=== PATIENT | male | born 1975 | race Caucasian/White ===

== ENCOUNTER 2020-08-01 18:30 | Emergency (ER) | payer OTHER, SELFPAY ==
[2020-08-01 18:47] VITALS: BP 129/83; PULSE 61; RESP 18; TEMP 36.6; O2SAT 97; BMI 26.6
[2020-08-01 19:38] LABS: MANUAL DIFF FLAG NO
[2020-08-01 19:39] LABS: Basophils Percent Auto 0.4 % (0-2); Eosinophils Absolute Auto 0.2 X10*3/uL (0.0-0.4); Eosinophils Percent Auto 1.8 % (0-4); Hematocrit 35.4 % (42-52); Hemoglobin 11.3 g/dl (14.0-18.0); Imm Gran Abs Auto 0.02 X10*3/uL (0.00-0.03); Imm Gran Pct Auto 0.2 % (0.0-0.4); Lymphocytes Absolute Auto 1.2 X10*3/uL (1.2-4.9); Lymphocytes Percent Auto 14.8 % (20-40); Mean Corpuscular HGB Conc 31.9 g/dl (31.0-36.0); Mean Corpuscular Hemoglobin 28.4 pg (27.0-33.0); Mean Corpuscular Volume 88.9 fL (80-98); Mean Platelet Volume 10.6 fL (9.4-12.4); Monocytes Absolute Auto 0.7 X10*3/uL (0.1-1.2); Monocytes Percent Auto 8.4 % (2-11); Neutrophils Absolute Auto 6.2 X10*3/uL (2.0-8.3); Neutrophils Percent Auto 74.4 % (45-73); Platelet Count 218 X10*3/uL (160-400); Red Blood Count 3.98 X10*6/uL (4.60-5.80); Red Cell Distribution Width 13.3 % (11.0-16.0); White Blood Count 8.4 X10*3/uL (4.8-10.8)
[2020-08-01 19:49] LABS: INTERNATIONAL NORM RATIO 2.7 (0.9-1.1); Prothrombin Time 32.2 SEC (10.8-13.0)
[2020-08-01] MEDS: Lidocaine 4 % Cream KIT 1 APPL TOPICAL (19:50)
[2020-08-01 19:51] LABS: Partial Thromboplastin Time 46.7 SEC (24.1-38.0)
[2020-08-01] MEDS: cephALEXin 500 MG CAPSULE PO (19:51)
[2020-08-01] MEDS: Lidocaine HCl 1 % MPF 5 ML VIAL 10 ML SUBCUT (19:52)
[2020-08-01 20:07] LABS: Lactic Acid 0.6 mmol/L (0.5-2.0)
[2020-08-01 20:12] LABS: Alanine Aminotransferase 12 U/L (0-40); Albumin Level 3.6 g/dL (3.5-5.0); Alkaline Phosphatase 61 U/L (39-117); Anion Gap 15 (12-20); Aspartate Amino Transferase 24 U/L (5-37); Bilirubin Total 0.4 mg/dL (0.0-1.0); Blood Urea Nitrogen 16 mg/dL (9-16); Calcium 8.4 mg/dL (8.4-10.2); Carbon Dioxide 20 mmol/L (22-29); Chloride 104 mmol/L (96-108); Creatinine Clr Calc Pharmacy 81.1; Estimated Glomerular Filt Rate > 60; Glucose Random 80 mg/dL (60-115); Potassium 4.3 mmol/l (3.3-5.1); Sodium 135 mmol/L (135-145); Total Protein 6.7 g/dL (6.5-8.0)
--- NOTE | 2020-08-01 20:16 | US_ITS ---
EXAMINATION: US VENOUS ULTRASOUND WITH DOPPLER LOWER EXTREMITY, RIGHT CLINICAL INFORMATION: 44-year-old male patient with leg swelling and pain. COMPARISON: Triplex scan of the left lower extremity on 05/17/2020. (Negative). TECHNIQUE: Ultrasound of the deep veins is performed from the hip to the calf with compression sonography and color and pulse Doppler assessment. Spectral analysis with color-flow imaging is performed. FINDINGS: There is normal venous compression and respiratory variation and augmented flow. The visualized common femoral vein, superficial femoral vein, profunda femoral vein, popliteal vein, and the trifurcation region shows no evidence of deep venous thrombosis. There is no significant popliteal fossa cyst. US/US venous duplex LE RT IMPRESSION: No DVT demonstrated in the right lower extremity.
[2020-08-01] MEDS: oxyCODONE HCl Immed Release 5 MG TABLET PO (20:23)
--- NOTE | 2020-08-01 20:28 | PC.NURSE ---
[facility] PATIENTS LABS AND 1 SET OF CULTURES TOGETHER. PATIENT WAS A DIFFICULT STICK. PATIENT TOLD THIS TECH HE DID NOT WANT TO BE STUCK ANYMORE. PATIENT WAS GIVEN ANTIBIOTICS AFTER THE LABS AND 1 SET OF CULTURES WERE DONE. BLOOD CULTURE ORDER WAS NOT PUT IN TIME OF LABS DRAWN. SECOND SET OF CULTURES WERE NOT DRAWN.
--- NOTE | 2020-08-01 20:46 | PC.NURSE ---
ONE BLOOD CULTURE WAS DRAWN PRIOR TO ANTIBIOTICS. TECH WAS WAITING FOR MD ORDER. MD JUST ORDERED BLOOD CULTURES. SECOND SET IS BEING DRAWN NOW. MOE JULIEN.
--- NOTE | 2020-08-01 21:09 | ED.SKABFB ---
HPI - Skin/Abscess/Foreign Bdy General Chief complaint: Wound/Laceration Stated complaint: abscess Time Seen by Provider: 08/01/20 19:18 Source: patient Mode of arrival: ambulatory Limitations: no limitations History of Present Illness HPI narrative: 44-year-old male with history of valve replacement on Coumadin also history of IV drug use presenting with complaint of pain to the posterior right calf area were he presumably attempted inject heroin and miss now site has formed abscess. He denies any fever or chills no chest pain or shortness of breath. MD complaint: abscess/boil Onset (ago): day(s) Tetanus up to date: yes Location: RLE Severity: moderate Quality: aching Pain Consistency: constant Relieving factors: immobilization Exacerbating factors: palpation Context: IVDA Associated symptoms: denies other symptoms Treatments prior to arrival: none Related Data Previous Rx's Medication Instructions Recorded cephalexin [Keflex] 500 mg PO Q8H 7 Days #21 cap 08/01/20 doxycycline monohydrate 100 mg PO BID 10 Days #20 cap 08/01/20 Allergies Allergy/AdvReac Type Severity Reaction Status Date / Time No Known Allergies Allergy Unverified 06/08/20 15:07 [No Known Allergies*] [facility] Past Medical History Attestation statement: The following information was validated with the patient. Source: unable to obtain Medical History IV drug user Surgical History (Updated 08/01/20 @ 21:15 by Beau Fletcher NP) Heart valve replaced Social History Social History Advance Directives: No Advance Directives Information Provided: Yes Physical Exam Vital Signs: Vital Signs: Last Vital Signs Temp 98 F 08/01/20 18:47 Pulse 61 08/01/20 18:47 Resp 18 08/01/20 18:47 BP 129/83 08/01/20 18:47 Pulse Ox 97 08/01/20 18:47 Body Mass Index 26.6 Reviewed Const: General: cooperative and healthy appearing; No acute distress or intoxicated appearing Nutritional Appearance: average body habitus Orientation/consciousness: patient oriented x3 HENMT: Head: Yes normal to inspection Ears: hearing grossly normal bilaterally Eyes: General: appearance normal, both eyes and all related structures Visual Rubin: normal visual rubin by confrontation Neck: Neck: Yes normal visual inspection and No tender Thyroid: Thyroid normal Chest: Chest palpation & inspection: normal inspection of the chest Resp: Effort & Inspection: normal respiratory effort Cardio: Jugular venous distension: no JVD GI: Inspection: Yes normal to inspection Percussion: Yes normal to percussion Auscultation: normal bowel sounds : General: Yes no CVA tenderness Back/Spine/Pelvis: Back: no CVA tenderness Skin: General skin exam: no rashes or lesions noted Neuro: General: patient oriented x3 Extrem: Other: General: Yes normal to inspection Procedures Abscess I/D Site: lower extremity (Right calf) Side (if applicable): right Sedation/analgesia: other (5 mg oxycodone p.o., topical LMX, local) Local Anesthetic: lidocaine 1% Amount of anesthesia used (mL): 10 Technique: incised with blade (11. ) Amount of fluid expressed (mL): 20 Irrigation: Yes Packing used?: iodoform Complications: other (Tolerated well) MDM - Skin/Abscess/Foreign Bdy MDM Narrative Medical decision making narrative: Though labs are stable given his significant area of abscess and cellulitis recommended for admission for IV antibiotics he declined this. Ultrasound did not show any evidence of DVT. Given dose of IV antibiotics here lab work was done including lactic acid and blood cultures. Patient will sign against medical advice. Differential Diagnosis Differential diagnosis: Likely abscess of skin or subcutaneous tissue and cellulitis; Unlikely viral exanthem, dermatophytosis, urticaria, herpes zoster, allergic reaction to drug, eczema, insect bites, impetigo and contact dermatitis Lab Data Result diagrams: 08/01/20 19:32 08/01/20 19:32 Labs: Lab Results 08/01/20 08/01/20 08/01/20 Range/Units 19:32 19:32 19:32 WBC 8.4 (4.8-10.8) X10*3/uL RBC 3.98 L (4.60-5.80) X10*6/uL Hgb 11.3 L (14.0-18.0) g/dl Hct 35.4 L (42-52) % MCV 88.9 (80-98) fL MCH 28.4 (27.0-33.0) pg MCHC 31.9 (31.0-36.0) g/dl RDW 13.3 (11.0-16.0) % Plt Count 218 (160-400) X10*3/uL MPV 10.6 (9.4-12.4) fL Immature Gran % (Auto) 0.2 (0.0-0.4) % Neut % (Auto) 74.4 H (45-73) % Lymph % (Auto) 14.8 L (20-40) % [place] % (Auto) 8.4 (2-11) % Eos % (Auto) 1.8 (0-4) % Baso % (Auto) 0.4 (0-2) % Lymph # (Auto) 1.2 (1.2-4.9) X10*3/uL [place] # (Auto) 0.7 (0.1-1.2) X10*3/uL Eos # (Auto) 0.2 (0.0-0.4) X10*3/uL Baso # (Auto) 0.0 (0.0-0.2) X10*3/uL Abs Immat Gran (auto) 0.02 (0.00-0.03) X10*3/uL Absolute Neuts (auto) 6.2 (2.0-8.3) X10*3/uL Absolute Nucleated RBC 0.000 (0.0-0.012) X10*3/uL Nucleated RBC % (auto) 0.0 (0.0-0.2) /100WBC PT 32.2 H (10.8-13.0) SEC INR 2.7 H (0.9-1.1) APTT 46.7 H (24.1-38.0) SEC Sodium 135 (135-145) mmol/L Potassium 4.3 (3.3-5.1) mmol/l Chloride 104 (96-108) mmol/L Carbon Dioxide 20 L (22-29) mmol/L Anion Gap 15 (12-20) BUN 16 (9-16) mg/dL Creatinine 1.10 (0.5-1.4) mg/dL Estim Creat Clear Calc 81.1 Estimated GFR > 60 Random Glucose 80 (60-115) mg/dL Lactic Acid (0.5-2.0) mmol/L Calcium 8.4 (8.4-10.2) mg/dL Total Bilirubin 0.4 (0.0-1.0) mg/dL AST 24 (5-37) U/L ALT 12 (0-40) U/L Alkaline Phosphatase 61 (39-117) U/L Total Protein 6.7 (6.5-8.0) g/dL Albumin 3.6 (3.5-5.0) g/dL 08/01/20 Range/Units 19:32 WBC (4.8-10.8) X10*3/uL RBC (4.60-5.80) X10*6/uL Hgb (14.0-18.0) g/dl Hct (42-52) % MCV (80-98) fL MCH (27.0-33.0) pg MCHC (31.0-36.0) g/dl RDW (11.0-16.0) % Plt Count (160-400) X10*3/uL MPV (9.4-12.4) fL Immature Gran % (Auto) (0.0-0.4) % Neut % (Auto) (45-73) % Lymph % (Auto) (20-40) % [place] % (Auto) (2-11) % Eos % (Auto) (0-4) % Baso % (Auto) (0-2) % Lymph # (Auto) (1.2-4.9) X10*3/uL [place] # (Auto) (0.1-1.2) X10*3/uL Eos # (Auto) (0.0-0.4) X10*3/uL Baso # (Auto) (0.0-0.2) X10*3/uL Abs Immat Gran (auto) (0.00-0.03) X10*3/uL Absolute Neuts (auto) (2.0-8.3) X10*3/uL Absolute Nucleated RBC (0.0-0.012) X10*3/uL Nucleated RBC % (auto) (0.0-0.2) /100WBC PT (10.8-13.0) SEC INR (0.9-1.1) APTT (24.1-38.0) SEC Sodium (135-145) mmol/L Potassium (3.3-5.1) mmol/l Chloride (96-108) mmol/L Carbon Dioxide (22-29) mmol/L Anion Gap (12-20) BUN (9-16) mg/dL Creatinine (0.5-1.4) mg/dL Estim Creat Clear Calc Estimated GFR Random Glucose (60-115) mg/dL Lactic Acid 0.6 (0.5-2.0) mmol/L Calcium (8.4-10.2) mg/dL Total Bilirubin (0.0-1.0) mg/dL AST (5-37) U/L ALT (0-40) U/L Alkaline Phosphatase (39-117) U/L Total Protein (6.5-8.0) g/dL Albumin (3.5-5.0) g/dL Discharge Plan Discharge Clinical Impression: Abscess Patient Disposition: Left Against Medical Advice Instructions: Abscess (ED), Abscess Incision and Drainage (DC), Opioid Use Disorder (ED) Additional Instructions: Please stop using illicit drugs is cause serious harm to her health including but not limited to Your evaluated for the abscess on the posterior aspect of your right calf you were evaluated with blood work and ultrasound and I recommended that he stay in the hospital for IV antibiotic. You have declined admission here and are signing out against medical advice with understanding that your condition can worsen where this infection can become blood borne cause major organ damage and lead to . Return in 2 days for abscess recheck and packing removal Return sooner if any concerns or worsening symptoms Take antibiotic as prescribed Thank you Prescriptions: New doxycycline monohydrate 100 mg capsule 100 mg PO BID 10 Days Qty: 20 RF: 0 cephalexin [Keflex] 500 mg capsule 500 mg PO Q8H 7 Days Qty: 21 RF: 0 Referrals: Rashel Chavez MD [Primary Care Provider] - 2 days Beau Fletcher NP [Emergency Midlevel Provider] - 2 days (For wound check/packing removal)
--- NOTE | 2020-08-01 21:30 | PC.NURSE ---
PT WAS NOT IN ROOM FOR DISCHARGE PAPERS. PROVIDER DRAINED AND PACKED ABSCESS ON RIGHT CALF. 2 ATTEMPTS TO CALL PATIENT BACK. MESSAGE LEFT WITH TO HAVE PATIENT CALL ED. NO OTHER INFORMATION WAS GIVEN TO .
== END 2020-08-01 21:42 | disposition left against medical advice (07) ==
PROVIDERS: Nurse Practitioner Primary Care; Emergency Provider Emergency Medicine; PCP Internal Medicine
DX: L02.415 Cutaneous abscess of right lower limb (principal); R60.0 Localized edema; M79.604 Pain in right leg; F11.10 Opioid abuse, uncomplicated; Z71.51 Drug abuse counseling and surveillance of drug abuser
CPT/HCPCS: 10060; 36415; 80053; 83605; 85025; 85610; 85730; 87040; 93971; 99284

== ENCOUNTER 2020-08-02 03:49 | Inpatient (IN) | payer OTHER, SELFPAY ==
[2020-08-02] VITALS (9 sets, daily range): BP systolic 95–132; BP diastolic 49–79; PULSE 51–66; RESP 12–18; TEMP 36.2–36.6; O2SAT 96–100; BMI 26.6
--- NOTE | 2020-08-02 | ECG_ITS ---
Test Reason : CHECK QTC Blood Pressure : / mmHG Vent. Rate : 053 BPM Atrial Rate : 053 BPM P-R Int : 150 ms QRS Dur : 110 ms QT Int : 516 ms P-R-T Axes : 053 053 079 degrees QTc Int : 484 ms Sinus bradycardia RSR' or QR pattern in V1 suggests right ventricular conduction delay Minimal voltage criteria for LVH, may be normal variant Prolonged QT Nonspecific T wave abnormality Abnormal ECG When compared with ECG of 17-MAY-2020 18:11, Premature ventricular complexes are no longer Present Vent. rate has decreased BY 30 BPM Nonspecific T wave abnormality has replaced inverted T waves in Anterior leads Referred By: Loulou Jacobson Electronically Signed By:VANESSA ROWE MD
--- NOTE | 2020-08-02 04:18 | ED_ITS ---
HPI - Extremity Problem General Chief complaint: Skin/Abscess/Foreign Body Stated complaint: ABSCESS ON LEG Time Seen by Provider: 08/02/20 04:08 Source: patient Mode of arrival: ambulatory Limitations: no limitations History of Present Illness HPI Narrative: patient comes to emergency room complaining of worsening pain, subjective fever and chills. Patient has an abscess in his right calf. Patient was seen earlier today, the abscess was drained, patient states he was advised to stay for admission, patient refused. Patient states earlier today he received IV antibiotics in the left. Patient states that he can no longer stand the pain. Related Data Home Medications Medication Instructions Recorded Confirmed methadone [Methadose] 40 mg PO DAILY 08/02/20 08/02/20 omeprazole 20 mg PO DAILY 08/02/20 08/02/20 warfarin 10 mg PO DAILY 08/02/20 08/02/20 Allergies Allergy/AdvReac Type Severity Reaction Status Date / Time No Known Allergies Allergy Verified 08/02/20 04:02 [No Known Allergies*] Review of Systems Review of Systems: Constitutional : No Weight loss, No Fever, No Chills, No Night Sweats, No Fatigue, No Malaise ENT/Mouth : No Hearing loss, No Ear Pain, No Nasal Congestion, No Sinus Pain, No Hoarseness, No sore throat, No Rhinorrhea, No Swallowing Difficulty Eyes: No Eye Pain, No Swelling, No Redness, No Foreign Body, No Discharge, No Vision Changes Cardiovascular : No Chest Pain, No SOB, No Dyspnea on Exertion, No Orthopnea, No Edema, No Palpitations Respiratory : No Cough, No Sputum, No Wheezing, No Smoke Exposure, No Dyspnea Gastrointestinal : No Nausea, No Vomiting, No Diarrhea, No Constipation, No abdominal Pain, No Hematochezia, No Melena Genitourinary : no irregular bleeding, No Dysuria, No Urinary Frequency, No Hematuria, No Urinary Incontinence, No Urgency, No Flank Pain, No Urinary Flow Changes, No Hesitancy Musculoskeletal : No joint pain, No Myalgias, No Joint Swelling Skin : Erythematous, red, painful to touch skin in the right calf. Neuro : No Weakness, No Numbness, No Paresthesias, No Loss of Consciousness, No Dizziness, No Headache Psych : No Anxiety/Panic, No Depression, No SI/HI/AH/VH, No Social Issues, Heme/Lymph: No Bruising, No Bleeding,No Lymphadenopathy Endocrine : No Polyuria, No Polydipsia, No Temperature Intolerance [facility] Past Medical History Medical History Endocarditis IV drug user Surgical History (Updated 08/02/20 @ 06:35 by Twin Lamas MD) Heart valve replaced Mitral valve replaced Social History Social History Alcohol intake: never Smoking Status: Current every day smoker Use of substances other than those prescribed or required for medical reasons: Yes Substance Use Type: Crack/Cocaine and Heroin Substance Use Frequency: Daily Last Used Substance: Days (ago) Any prior treatment program specific to substance use: Yes Advance Directives: No Physical Exam Vital Signs: Vital Signs: Last Vital Signs Temp 98 F 08/02/20 06:00 Pulse 66 08/02/20 06:00 Resp 12 08/02/20 06:00 BP 102/54 L 08/02/20 06:00 Pulse Ox 98 08/02/20 06:00 Body Mass Index 26.6 Appearance: Alert. Oriented X3. No acute distress. Eyes: Pupils equal, round and reactive to light. ENT: Pharynx normal. Neck: Normal inspection. Neck supple. No lymph nodes noted. No crepitus CVS: Normal heart rate and rhythm. Pulses normal. Normal S1 and S2 Respiratory: No respiratory distress. Breath sounds normal. No Wheezing. No rales Abdomen: Soft and nontender. No rigidity. No distention. good BS x4 Skin: Patient has erythema, tender to palpation, draining a scant amount of blood, packing in place Extremities: No lower extremity edema. No lower extremity edema. No Lacerations. No Rash Neuro: Oriented X 3. No motor deficit. No sensory deficit. Moving all extermities. No slurred speech. Course Course Course Narrative: pt b eing admitted MDM - Extremity (Nontraumatic) Lab Data Result diagrams: 08/02/20 04:48 08/02/20 04:48 Labs: Lab Results 08/02/20 08/02/20 08/02/20 Range/Units 04:48 04:48 04:48 WBC 7.2 (4.8-10.8) X10*3/uL RBC 4.32 L (4.60-5.80) X10*6/uL Hgb 12.4 L (14.0-18.0) g/dl Hct 38.2 L (42-52) % MCV 88.4 (80-98) fL MCH 28.7 (27.0-33.0) pg MCHC 32.5 (31.0-36.0) g/dl RDW 13.3 (11.0-16.0) % Plt Count 243 (160-400) X10*3/uL MPV 11.0 (9.4-12.4) fL Immature Gran % (Auto) 0.3 (0.0-0.4) % Neut % (Auto) 72.7 (45-73) % Lymph % (Auto) 14.5 L (20-40) % [place] % (Auto) 9.5 (2-11) % Eos % (Auto) 2.7 (0-4) % Baso % (Auto) 0.3 (0-2) % Lymph # (Auto) 1.0 L (1.2-4.9) X10*3/uL [place] # (Auto) 0.7 (0.1-1.2) X10*3/uL Eos # (Auto) 0.2 (0.0-0.4) X10*3/uL Baso # (Auto) 0.0 (0.0-0.2) X10*3/uL Abs Immat Gran (auto) 0.02 (0.00-0.03) X10*3/uL Absolute Neuts (auto) 5.2 (2.0-8.3) X10*3/uL Absolute Nucleated RBC 0.000 (0.0-0.012) X10*3/uL Nucleated RBC % (auto) 0.0 (0.0-0.2) /100WBC PT (10.8-13.0) SEC INR (0.9-1.1) Sodium 136 (135-145) mmol/L Potassium 4.1 (3.3-5.1) mmol/l Chloride 102 (96-108) mmol/L Carbon Dioxide 26 (22-29) mmol/L Anion Gap 12 (12-20) BUN 15 (9-16) mg/dL Creatinine 1.23 (0.5-1.4) mg/dL Estim Creat Clear Calc 71.8 Estimated GFR > 60 Random Glucose 90 (60-115) mg/dL Lactic Acid 0.6 (0.5-2.0) mmol/L Calcium 9.1 D (8.4-10.2) mg/dL Total Bilirubin 0.2 (0.0-1.0) mg/dL Direct Bilirubin 0.2 (0.0-0.5) mg/dL AST 21 (5-37) U/L ALT 15 (0-40) U/L Alkaline Phosphatase 71 (39-117) U/L Total Protein 7.3 (6.5-8.0) g/dL Albumin 4.0 (3.5-5.0) g/dL 08/02/20 Range/Units 04:51 WBC (4.8-10.8) X10*3/uL RBC (4.60-5.80) X10*6/uL Hgb (14.0-18.0) g/dl Hct (42-52) % MCV (80-98) fL MCH (27.0-33.0) pg MCHC (31.0-36.0) g/dl RDW (11.0-16.0) % Plt Count (160-400) X10*3/uL MPV (9.4-12.4) fL Immature Gran % (Auto) (0.0-0.4) % Neut % (Auto) (45-73) % Lymph % (Auto) (20-40) % [place] % (Auto) (2-11) % Eos % (Auto) (0-4) % Baso % (Auto) (0-2) % Lymph # (Auto) (1.2-4.9) X10*3/uL [place] # (Auto) (0.1-1.2) X10*3/uL Eos # (Auto) (0.0-0.4) X10*3/uL Baso # (Auto) (0.0-0.2) X10*3/uL Abs Immat Gran (auto) (0.00-0.03) X10*3/uL Absolute Neuts (auto) (2.0-8.3) X10*3/uL Absolute Nucleated RBC (0.0-0.012) X10*3/uL Nucleated RBC % (auto) (0.0-0.2) /100WBC PT 40.4 H D (10.8-13.0) SEC INR 3.4 H (0.9-1.1) Sodium (135-145) mmol/L Potassium (3.3-5.1) mmol/l Chloride (96-108) mmol/L Carbon Dioxide (22-29) mmol/L Anion Gap (12-20) BUN (9-16) mg/dL Creatinine (0.5-1.4) mg/dL Estim Creat Clear Calc Estimated GFR Random Glucose (60-115) mg/dL Lactic Acid (0.5-2.0) mmol/L Calcium (8.4-10.2) mg/dL Total Bilirubin (0.0-1.0) mg/dL Direct Bilirubin (0.0-0.5) mg/dL AST (5-37) U/L ALT (0-40) U/L Alkaline Phosphatase (39-117) U/L Total Protein (6.5-8.0) g/dL Albumin (3.5-5.0) g/dL Discharge Plan Discharge Clinical Impression: IV drug user, Cellulitis Patient Disposition: Admitted As Inpatient Prescriptions: No Action warfarin 5 mg tablet 10 mg PO DAILY RF: 0 omeprazole 20 mg capsule,delayed release(DR/EC) 20 mg PO DAILY RF: 0 methadone [Methadose] 10 mg/mL Concentrate 40 mg PO DAILY RF: 0
[2020-08-02 05:03] LABS: MANUAL DIFF FLAG NO
[2020-08-02 05:08] LABS: Basophils Percent Auto 0.3 % (0-2); Eosinophils Absolute Auto 0.2 X10*3/uL (0.0-0.4); Eosinophils Percent Auto 2.7 % (0-4); Hematocrit 38.2 % (42-52); Hemoglobin 12.4 g/dl (14.0-18.0); Imm Gran Abs Auto 0.02 X10*3/uL (0.00-0.03); Imm Gran Pct Auto 0.3 % (0.0-0.4); Lymphocytes Percent Auto 14.5 % (20-40); Mean Corpuscular HGB Conc 32.5 g/dl (31.0-36.0); Mean Corpuscular Hemoglobin 28.7 pg (27.0-33.0); Mean Corpuscular Volume 88.4 fL (80-98); Monocytes Absolute Auto 0.7 X10*3/uL (0.1-1.2); Monocytes Percent Auto 9.5 % (2-11); Neutrophils Absolute Auto 5.2 X10*3/uL (2.0-8.3); Neutrophils Percent Auto 72.7 % (45-73); Platelet Count 243 X10*3/uL (160-400); Red Blood Count 4.32 X10*6/uL (4.60-5.80); Red Cell Distribution Width 13.3 % (11.0-16.0); White Blood Count 7.2 X10*3/uL (4.8-10.8)
[2020-08-02 05:12] LABS: INTERNATIONAL NORM RATIO 3.4 (0.9-1.1); Prothrombin Time 40.4 SEC (10.8-13.0)
[2020-08-02] MEDS: 0.9 % Sodium Chloride 1,000 ML 999 ML IVCONT ×2 (05:23)
[2020-08-02] MEDS: Morphine Sulfate 4 MG/ML CARTRIDGE IVPUSH ×3 (05:23→21:57)
[2020-08-02] MEDS: Ketorolac Tromethamine 30 MG/ML VIAL IVPUSH (05:23)
[2020-08-02 05:41] LABS: Lactic Acid 0.6 mmol/L (0.5-2.0)
[2020-08-02 05:45] LABS: Alanine Aminotransferase 15 U/L (0-40); Alkaline Phosphatase 71 U/L (39-117); Anion Gap 12 (12-20); Aspartate Amino Transferase 21 U/L (5-37); Bilirubin Direct 0.2 mg/dL (0.0-0.5); Bilirubin Total 0.2 mg/dL (0.0-1.0); Blood Urea Nitrogen 15 mg/dL (9-16); Calcium 9.1 mg/dL (8.4-10.2); Carbon Dioxide 26 mmol/L (22-29); Chloride 102 mmol/L (96-108); Creatinine Clr Calc Pharmacy 71.8; Estimated Glomerular Filt Rate > 60; Glucose Random 90 mg/dL (60-115); Potassium 4.1 mmol/l (3.3-5.1); Sodium 136 mmol/L (135-145); Total Protein 7.3 g/dL (6.5-8.0)
--- NOTE | 2020-08-02 06:17 | PC.NURSE ---
Pt takes metahdone daily. Methdone dose was verified, and faxed to pharmacy. Please see paper chart for details.
--- NOTE | 2020-08-02 06:29 | P.HPHOSP_ITS ---
History of Present Illness Date of Service: 08/02/20 Chief Complaint: skin abscess this is a 45-year-old male with past medical history of IV drug use as well as 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 Patient presented in the hospital earlier in the day, the abscess was drained, patient was supposed to be admitted but he refused admission at that time. He returns this morning stating that he continued not feeling well, nauseous, feeling weak and therefore decided to return to the hospital. When I saw him,the patient is withdrawing from methadone, feeling nauseous, pacing back and forth, otherwise reports that he noticed the abscess about 4 days ago, started small like a pimple and grew in size. He denies having any fever. He injects in that site. He has no abdominal pain, diarrhea constipation, no urinary symptoms and no lower extremity edema. On arrival to the ED hemodynamically stable with no significant abnormal vitals labs are significant for no leukocytosis, PT of 40, INR 3.4, otherwise unre markable. past medical history: IV drug use, endocarditis status post mitral valve replacement on Coumadin past surgical history: Mitral valve replacement due to endocarditis family history: Denies Social history: comes from home, smokes about 1 pack per day, denies alcohol use, uses heroin Review of Systems Review of Systems: Yes all other systems are reviewed and are negative [facility] Medical History Endocarditis IV drug user Surgical History (Updated 08/02/20 @ 06:35 by Twin Lamas MD) Heart valve replaced Mitral valve replaced Social History Alcohol intake: never Smoking Status: Current every day smoker Use of substances other than those prescribed or required for medical reasons: Yes Substance Use Type: Crack/Cocaine and Heroin Substance Use Frequency: Daily Last Used Substance: Days (ago) Any prior treatment program specific to substance use: Yes Advance Directives: No Meds Allergies Allergy/AdvReac Type Severity Reaction Status Date / Time No Known Allergies Allergy Verified 08/02/20 04:02 [No Known Allergies*] Home Medications Medication Instructions Recorded Confirmed Type methadone [Methadose] 40 mg PO DAILY 08/02/20 08/02/20 History omeprazole 20 mg PO DAILY 08/02/20 08/02/20 History warfarin 10 mg PO DAILY 08/02/20 08/02/20 History Physical Exam Vital Signs and Narrative: Vital Signs: Last Vital Signs Temp 97.7 F 08/02/20 04:18 Pulse 64 08/02/20 05:22 Resp 12 08/02/20 05:22 BP 106/49 L 08/02/20 05:22 Pulse Ox 98 08/02/20 05:22 Body Mass Index 26.6 Const: General: cooperative and no acute distress Orientation/consciousness: patient oriented x3 Eyes: General: appearance normal, both eyes and all related structures Pupils: Equal, round and reactive pupils present Resp: Effort & Inspection: normal respiratory effort and able to speak in complete sentences Auscultation: clear to auscultation bilaterally Cardio: Rate: regular rate Rhythm: regular rhythm GI: Palpation (GI): Soft to palpation Auscultation: normal bowel sounds Skin: General skin exam: no rashes or lesions noted Neuro: General: patient oriented x3 Cranial nerves: Yes Equal, round and reactive pupils present Cognition (Neuro): normal cognition Extrem: Other: a large open wound on the posterior aspect of right leg wound, erythema, tenderness, wound General: Yes no pedal edema Results Labs CBC and Chem 7: 08/02/20 04:48 08/02/20 04:48 Labs: Laboratory Results - last 24 hr 08/02/20 08/02/20 08/02/20 04:48 04:48 04:48 MCV 88.4 MCH 28.7 MCHC 32.5 RDW 13.3 Plt Count 243 MPV 11.0 Immature Gran % (Auto) 0.3 Neut % (Auto) 72.7 Lymph % (Auto) 14.5 L [place] % (Auto) 9.5 Eos % (Auto) 2.7 Baso % (Auto) 0.3 Lymph # (Auto) 1.0 L [place] # (Auto) 0.7 Eos # (Auto) 0.2 Baso # (Auto) 0.0 Abs Immat Gran (auto) 0.02 Absolute Neuts (auto) 5.2 Absolute Nucleated RBC 0.000 Nucleated RBC % (auto) 0.0 PT INR Anion Gap 12 Estim Creat Clear Calc 71.8 Estimated GFR > 60 Random Glucose 90 Lactic Acid 0.6 Calcium 9.1 D Total Bilirubin 0.2 Direct Bilirubin 0.2 AST 21 ALT 15 Alkaline Phosphatase 71 Total Protein 7.3 Albumin 4.0 08/02/20 04:51 MCV MCH MCHC RDW Plt Count MPV Immature Gran % (Auto) Neut % (Auto) Lymph % (Auto) [place] % (Auto) Eos % (Auto) Baso % (Auto) Lymph # (Auto) [place] # (Auto) Eos # (Auto) Baso # (Auto) Abs Immat Gran (auto) Absolute Neuts (auto) Absolute Nucleated RBC Nucleated RBC % (auto) PT 40.4 H D INR 3.4 H Anion Gap Estim Creat Clear Calc Estimated GFR Random Glucose Lactic Acid Calcium Total Bilirubin Direct Bilirubin AST ALT Alkaline Phosphatase Total Protein Albumin Assessment and Plan (1) Mitral valve replaced: Status: Acute (2) Endocarditis: Status: Acute (3) IV drug user: Status: Acute this is a 45-year-old male with past medical history of IV drug use, endocarditis who presents to the hospital with abscess on the back of his right calf. # Abscess - site of IV drug at injection, has erythema, tenderness, drainage, warmth - patient has history of endocarditis status post mitral valve replacement - afebrile, no leukocytosis Plan - given his history of IV drug use, as well as endocarditis will cover him with vancomycin and Zosyn - blood cultures collected- will follow - infectious disease consult # IV drug abuse - patient on methadone - continue # history of endocarditis and mechanical mitral valve replacement - therapeutic INR of 3.4 - continue Coumadin - daily PT INR DVT prophylaxis: Coumadin
--- NOTE | 2020-08-02 07:06 | PC.NURSE ---
pt's iv came out, unable to sit still, unwilling to have iv attempt until he gets methadone,
--- NOTE | 2020-08-02 07:42 | PC.NURSE ---
IV PLACED L AC AREA VIA U/S
--- NOTE | 2020-08-02 08:28 | PC.NURSE ---
called to floor
[2020-08-02] MEDS: Enoxaparin Sodium 40 MG/0.4 ML SYRINGE SUBCUT (10:58)
[2020-08-02] MEDS: Piperacillin Sodium/Tazobactam 3.375 GM in 0.9 % Sodium Chloride 50 ML IV ×3 (10:59→23:21)
[2020-08-02] MEDS: Omeprazole 20 MG CAPSULE.DR PO (10:59)
[2020-08-02] MEDS: 0.9 % Sodium Chloride Flush 3 ML SYRINGE IVFLUSH ×2 (11:09→11:43)
[2020-08-02] MEDS: Nicotine 14 MG PATCH.TD24 TRANSDERMA (11:42)
[2020-08-02] MEDS: vancomycin HCL 1,000 MG in 0.9 % Sodium Chloride 250 ML 180 MG IV (11:42)
--- NOTE | 2020-08-02 13:01 | W.PM.IDCN ---
History of Present Illness Data of Consult Service Date: 08/02/20 Requesting physician: Twin aLmas Primary Care Provider: Rashel Chavez MD HPI Reason for consult: abscess right calf He presents to ER with two days fever and chills and redness with swelling right calf He was seen earlier in ER but had left AMA He returns with worsening chills and redness He reports doesnt know how he got leg injury Blood cultures pending Review of Systems Constitutional: Constitutional: Reports no additional constitutional complaints Musculoskeletal: Musculoskeletal: Reports no additional musculoskeletal complaints [facility] Past Medical History Medical History Endocarditis IV drug user Family History Family history: reviewed and not pertinent Surgical History Surgical History Heart valve replaced Mitral valve replaced Social History Social History Household Members: None Housing: Other Housing Other:: homeless Do you presently have visiting nurse or other home services: No Alcohol intake: never Smoking Status: Current every day smoker Tobacco Type: Cigarette Cigarettes Per Day: 1 Smoked in Last 30 Days: Yes Patient Interested in Nicotine Replacement: Yes Patient Given Instructions on How to Stop Smoking: Yes Date Education Initiated: 08/02/20 Second Hand Smoke Exposure: No Use of substances other than those prescribed or required for medical reasons: Yes Substance Use Type: Heroin Substance Use Frequency: Daily Last Used Substance: Just Prior to Admission Currently Displaying Signs/Symptoms of Drug Intoxication Withdrawal: Yes Any prior treatment program specific to substance use: Yes Have you been hit, kicked, punched, or otherwise hurt by someone within the past year? If so, by whom?: No Do you feel safe in your current relationship?: No Is there a partner from a previous relationship who is making you feel unsafe now?: No Are you made to feel afraid or neglected: No Advance Directives: No Do you have thoughts of harming others: None Meds Allergies Allergy/AdvReac Type Severity Reaction Status Date / Time No Known Allergies Allergy Verified 08/02/20 04:02 [No Known Allergies*] Home Medications Medication Instructions Recorded Confirmed Type methadone [Methadose] 40 mg PO DAILY 08/02/20 08/02/20 History omeprazole 20 mg PO DAILY 08/02/20 08/02/20 History warfarin 10 mg PO DAILY 08/02/20 08/02/20 History Physical Exam Vital Signs: Vital Signs: Last Vital Signs Temp 97.5 F 08/02/20 11:44 Pulse 55 08/02/20 11:44 Resp 17 08/02/20 11:44 BP 120/68 08/02/20 11:44 Pulse Ox 100 08/02/20 11:44 Body Mass Index 26.6 Const: General: ill appearing Orientation/consciousness: oriented to person, oriented to place and oriented to time HENMT: Head: Yes normal to inspection Mouth: oropharynx normal Eyes: General: appearance normal, both eyes and all related structures Cardio: Rate: regular rate Rhythm: regular rhythm Heart sounds: Murmur heart sound present systolic early GI: Inspection: Yes normal to inspection Palpation (GI): Soft to palpation and nontender : General: Yes no CVA tenderness Back/Spine/Pelvis: Back: no CVA tenderness Cervical Spine: cervical ROM normal Thoracic/Lumbar Spine: thoracic and lumbar spine normal to inspection Skin: Other: right calf 3 x 4 cm indurated area posteriorly,1 cm eschar Neuro: General: oriented to person, oriented to place and oriented to time Extrem: General: Yes normal to inspection Psych: Speech and movement: Psychomotor agitation in speech present and Slowed movement present (Neuro) Assessment and Plan (1) Cellulitis: Qualifiers: Site of cellulitis: extremity Site of cellulitis of extremity: lower extremity Problem details: He has abrasion,possibly from fall It looks like superficial infection,staph or strep cellulitis likely Status: Acute Continue Vancomycin Continue Zosyn for now Check HIV and Hepatitis C (2) Mitral valve replaced: Status: Acute Await blood cultures (3) IV drug user: Status: Acute Results Labs CBC & Chem 7: 08/02/20 04:48 08/02/20 04:48 Labs: Short CBC 08/02/20 Range/Units 04:48 WBC 7.2 (4.8-10.8) X10*3/uL Hgb 12.4 L (14.0-18.0) g/dl Hct 38.2 L (42-52) % Plt Count 243 (160-400) X10*3/uL BMP 08/02/20 04:48 Sodium 136 Potassium 4.1 Chloride 102 Carbon Dioxide 26 BUN 15 Creatinine 1.23 Calcium 9.1 D Liver Function 08/02/20 Range/Units 04:48 Total Bilirubin 0.2 (0.0-1.0) mg/dL Direct Bilirubin 0.2 (0.0-0.5) mg/dL AST 21 (5-37) U/L ALT 15 (0-40) U/L Alkaline Phosphatase 71 (39-117) U/L Albumin 4.0 (3.5-5.0) g/dL
--- NOTE | 2020-08-02 13:36 | HO.PM.IMPN ---
Subjective Subjective Date of Service: 08/02/20 Interval History: Pain at drained abscess site under control. Denies chest pain/dyspnea Physical Exam Vital Signs: Vital Signs: Last Vital Signs Temp 97.5 F 08/02/20 11:44 Pulse 55 08/02/20 11:44 Resp 17 08/02/20 11:44 BP 120/68 08/02/20 11:44 Pulse Ox 100 08/02/20 11:44 Body Mass Index 26.6 gen: NAD lungs: CTAB CV: mechanical S2, systolic murmur at apex abd: soft/NT ext: warm, well-perfused, no edema derm: upper R calf with scabbed over drained abscess with surrounding erythema, no fluctuance Objective Data Current Medications Generic Name Dose Route Start Last Admin Trade Name Freq PRN Reason Stop Dose Admin Acetaminophen 650 mg 08/02/20 09:55 Acetaminophen 325 Mg Tablet PO Q6H PRN Pain, Mild (Pain Scale 1-3) Docusate Sodium 100 mg 08/02/20 09:55 Docusate Sodium 100 Mg Capsule PO DAILY PRN Constipation Enoxaparin Sodium 40 mg 08/02/20 10:00 08/02/20 10:58 Enoxaparin Sodium 40 Mg/0.4 Ml Syringe SUBCUT 40 mg Q24H KARIN Administration Piperacillin Sod/Tazobactam 50 mls @ 100 mls/hr 08/02/20 11:00 08/02/20 11:45 Sod 3.375 gm/ Sodium Chloride IV Infused Q6H KARIN Infusion Vancomycin HCl 1,000 mg/ 270 mls @ 180 mls/hr 08/02/20 11:00 08/02/20 13:09 Sodium Chloride IV Infused Q12H KARIN Infusion Methadone HCl 40 mg 08/03/20 09:00 Methadone Hcl 1 Mg/0.1 Ml Oral.Conc PO DAILY KARIN Nicotine 14 mg 08/02/20 11:45 08/02/20 11:42 Nicotine 14 Mg Patch.Td24 TRANSDERMA 14 mg DAILY KARIN Administration Omeprazole 20 mg 08/02/20 09:55 08/02/20 10:59 Omeprazole 20 Mg Capsule.Dr PO 20 mg DAILY KARIN Administration Ondansetron HCl 4 mg 08/02/20 09:55 Ondansetron Hcl 4 Mg/2 Ml Vial IVPUSH Q8H PRN Nausea and Vomiting Sodium Chloride 3 ml 08/02/20 09:55 08/02/20 11:43 0.9 % Sodium Chloride Flush 3 Ml Syringe IVFLUSH 3 ml QSHIFT KARIN Administration Warfarin Sodium 10 mg 08/02/20 18:00 Warfarin Sodium 10 Mg Tablet PO DAILY@1800 [facility] Labs CBC & Chem 7: 08/02/20 04:48 08/02/20 04:48 Assessment and Plan (1) Cellulitis: Problem details: He has abrasion,possibly from fall It looks like superficial infection,staph or strep cellulitis likely Status: Acute (2) Mitral valve replaced: Status: Acute (3) IV drug user: Status: Acute Assessment and Plan: hospital d#1 45yo M with hx IDU, prior IE resulting in mech MV replacement # cellulitis and abscess - s/p drainage in ED 08/01/20 - continue vanc + pip/will - ID consultation # opioid use disorder - methadone, SWAT consultation - screen HIV/HCV # mechanical MV - continue warfarin, monitor INR # VTE ppx - warfarin
[2020-08-02] MEDS: Warfarin Sodium 10 MG TABLET PO (17:45)
[2020-08-02] MEDS: hydrOXYzine HCL 50 MG TABLET PO (17:45)
[2020-08-03] VITALS (9 sets, daily range): BP systolic 120–152; BP diastolic 70–95; PULSE 47–70; RESP 14–19; TEMP 36–36.4; O2SAT 95–99
[2020-08-03] MEDS: vancomycin HCL 1,000 MG in 0.9 % Sodium Chloride 250 ML 180 MG IV ×3 (00:13→23:44)
[2020-08-03] MEDS: 0.9 % Sodium Chloride Flush 3 ML SYRINGE IVFLUSH ×3 (00:13→17:44)
[2020-08-03] MEDS: hydrOXYzine HCL 50 MG TABLET PO ×2 (00:20→17:57)
[2020-08-03] MEDS: Morphine Sulfate 4 MG/ML CARTRIDGE IVPUSH ×3 (01:27→11:06)
[2020-08-03] MEDS: cloNIDine HCL 0.1 MG TABLET PO ×2 (03:01→23:44)
[2020-08-03] MEDS: diphenhydrAMINE HCL 50 MG/ML VIAL 25 MG IVPUSH (03:03)
[2020-08-03] MEDS: Piperacillin Sodium/Tazobactam 3.375 GM in 0.9 % Sodium Chloride 50 ML IV ×4 (05:34→22:39)
[2020-08-03] MEDS: Nicotine 14 MG PATCH.TD24 TRANSDERMA (08:35)
[2020-08-03] MEDS: Omeprazole 20 MG CAPSULE.DR PO (08:35)
[2020-08-03] MEDS: Enoxaparin Sodium 40 MG/0.4 ML SYRINGE SUBCUT (08:35)
[2020-08-03 08:39] LABS: ~HepC Num1 14.24 S/CO (0.00-0.79); ~Hepatitis C Antibody Reactive (Nonreactive)
[2020-08-03 08:59] LABS: HIV AB/AG Nonreactive (Nonreactive)
[2020-08-03 09:46] LABS: MANUAL DIFF FLAG NO
[2020-08-03 09:56] LABS: Basophils Percent Auto 0.5 % (0-2); Eosinophils Absolute Auto 0.1 X10*3/uL (0.0-0.4); Eosinophils Percent Auto 1.8 % (0-4); Hematocrit 35.2 % (42-52); Imm Gran Abs Auto 0.02 X10*3/uL (0.00-0.03); Imm Gran Pct Auto 0.4 % (0.0-0.4); Lymphocytes Absolute Auto 0.9 X10*3/uL (1.2-4.9); Lymphocytes Percent Auto 15.6 % (20-40); Mean Corpuscular HGB Conc 32.7 g/dl (31.0-36.0); Mean Corpuscular Hemoglobin 28.1 pg (27.0-33.0); Mean Corpuscular Volume 86.1 fL (80-98); Mean Platelet Volume 10.6 fL (9.4-12.4); Monocytes Absolute Auto 0.4 X10*3/uL (0.1-1.2); Monocytes Percent Auto 6.3 % (2-11); Neutrophils Absolute Auto 4.2 X10*3/uL (2.0-8.3); Neutrophils Percent Auto 75.4 % (45-73); Platelet Count 235 X10*3/uL (160-400); Red Blood Count 4.09 X10*6/uL (4.60-5.80); Red Cell Distribution Width 13.1 % (11.0-16.0); White Blood Count 5.5 X10*3/uL (4.8-10.8)
[2020-08-03 10:00] LABS: INTERNATIONAL NORM RATIO 4.8 (0.9-1.1); Prothrombin Time 57.9 SEC (10.8-13.0)
[2020-08-03 10:03] LABS: Hemoglobin 11.5 g/dl (14.0-18.0)
[2020-08-03 10:39] LABS: Alanine Aminotransferase 11 U/L (0-40); Albumin Level 3.4 g/dL (3.5-5.0); Alkaline Phosphatase 60 U/L (39-117); Anion Gap 12 (12-20); Aspartate Amino Transferase 15 U/L (5-37); Bilirubin Total 0.4 mg/dL (0.0-1.0); Blood Urea Nitrogen 9 mg/dL (9-16); C Reactive Protein 3.93 mg/dL (< or = 0.50); Calcium 8.3 mg/dL (8.4-10.2); Carbon Dioxide 24 mmol/L (22-29); Chloride 109 mmol/L (96-108); Creatinine Clr Calc Pharmacy 71.2; Estimated Glomerular Filt Rate > 60; Glucose Random 186 mg/dL (60-115); Potassium 3.7 mmol/l (3.3-5.1); Sodium 141 mmol/L (135-145); Total Protein 6.3 g/dL (6.5-8.0)
--- NOTE | 2020-08-03 11:02 | MHC.CARE ---
Recovery Support note: Patient is a 45 year old Icelandic speaking male who presented to [facility] due to pain related to an injection site abscess and was medically admitted for treatment. Patient is currently on Methadone which he receives through [facility] in [place]. Patient reports the Methadone works well for him but that he is interested in getting a higher dose. Patient reports he uses because he is homeless. Patient states his won't take him back unless he is sober and that he is living out of his car. Patient reports concern regarding where he will go after discharge. This law writer explained possible placement options, specifically [facility] and sober living. Patient is not appropriate for detox as he is stabilized on Methadone and he is not interested in getting off the Methadone. Patient has been provided with information on these supports. Patient continues to report that he doesn't know what to do. This law writer explained Recovery Coaching to patient and how a flag football coach can work with him after discharge to try and secure placement into a treatment program. This law writer will follow up with patient to see if there is any additional services he is interested in and to introduce him to a Phlebotomy Services Representative. Discussed case with patient's RN, Bart.
[2020-08-03 11:12] LABS: Erythrocyte Sedimentation Rate 17 MM/HR (0-15)
--- NOTE | 2020-08-03 12:14 | HO.PM.IMPN ---
Subjective Subjective Date of Service: 08/03/20 Interval History: Anxious C/o severe pain at site of abscess No fever Physical Exam Vital Signs: Vital Signs: Last Vital Signs Temp 97.6 F 08/03/20 11:28 Pulse 56 08/03/20 11:28 Resp 18 08/03/20 11:28 BP 147/84 H 08/03/20 11:28 Pulse Ox 98 08/03/20 11:28 Body Mass Index 26.6 gen: NAD lungs: CTAB CV: mechanical S2, systolic murmur at apex abd: soft/NT ext: warm, well-perfused, no edema derm: upper R calf with scabbed over drained abscess with surrounding erythema, no fluctuance Objective Data Current Medications Generic Name Dose Route Start Last Admin Trade Name Freq PRN Reason Stop Dose Admin Acetaminophen 650 mg 08/02/20 09:55 Acetaminophen 325 Mg Tablet PO Q6H PRN Pain, Mild (Pain Scale 1-3) Docusate Sodium 100 mg 08/02/20 09:55 Docusate Sodium 100 Mg Capsule PO DAILY PRN Constipation Enoxaparin Sodium 40 mg 08/02/20 10:00 08/03/20 08:35 Enoxaparin Sodium 40 Mg/0.4 Ml Syringe SUBCUT 40 mg Q24H KARIN Administration Hydromorphone HCl 0.5 mg 08/03/20 11:10 Hydromorphone Hcl 0.5 Mg/0.5 Ml Syringe IVPUSH Q4H PRN severe pain Hydroxyzine HCl 50 mg 08/02/20 17:11 08/03/20 00:20 Hydroxyzine Hcl 50 Mg Tablet PO 50 mg Q8H PRN Administration anxiety Piperacillin Sod/Tazobactam 50 mls @ 100 mls/hr 08/02/20 11:00 08/03/20 11:49 Sod 3.375 gm/ Sodium Chloride IV Infused Q6H KARIN Infusion Vancomycin HCl 1,000 mg/ 270 mls @ 180 mls/hr 08/02/20 11:00 08/03/20 11:49 Sodium Chloride IV 180 mls/hr Q12H KARIN Administration Methadone HCl 40 mg 08/03/20 09:00 08/03/20 08:35 Methadone Hcl 1 Mg/0.1 Ml Oral.Conc PO 40 mg DAILY KARIN Administration Nicotine 14 mg 08/02/20 11:45 08/03/20 08:35 Nicotine 14 Mg Patch.Td24 TRANSDERMA 14 mg DAILY KARIN Administration Omeprazole 20 mg 08/02/20 09:55 08/03/20 08:35 Omeprazole 20 Mg Capsule.Dr PO 20 mg DAILY KARIN Administration Ondansetron HCl 4 mg 08/02/20 09:55 Ondansetron Hcl 4 Mg/2 Ml Vial IVPUSH Q8H PRN Nausea and Vomiting Sodium Chloride 3 ml 08/02/20 09:55 08/03/20 08:35 0.9 % Sodium Chloride Flush 3 Ml Syringe IVFLUSH 3 ml QSHIFT KARIN Administration Warfarin Sodium 10 mg 08/02/20 18:00 08/02/20 17:45 Warfarin Sodium 10 Mg Tablet PO 10 mg DAILY@1800 KARIN Administration Labs CBC & Chem 7: 08/03/20 09:39 08/03/20 09:39 Labs: Laboratory Results WBC 5.5 X10*3/uL (4.8-10.8) 08/03/20 09:39 WBC Cancelled 08/03/20 09:39 RBC 4.09 X10*6/uL (4.60-5.80) L 08/03/20 09:39 RBC Cancelled 08/03/20 09:39 Hgb 11.5 g/dl (14.0-18.0) L 08/03/20 09:39 Hgb Cancelled 08/03/20 09:39 Hct 35.2 % (42-52) L 08/03/20 09:39 Hct Cancelled 08/03/20 09:39 MCV 86.1 fL (80-98) 08/03/20 09:39 MCV Cancelled 08/03/20 09:39 MCH 28.1 pg (27.0-33.0) 08/03/20 09:39 MCH Cancelled 08/03/20 09:39 MCHC 32.7 g/dl (31.0-36.0) 08/03/20 09:39 MCHC Cancelled 08/03/20 09:39 RDW 13.1 % (11.0-16.0) 08/03/20 09:39 RDW Cancelled 08/03/20 09:39 Plt Count 235 X10*3/uL (160-400) 08/03/20 09:39 Plt Count Cancelled 08/03/20 09:39 MPV 10.6 fL (9.4-12.4) 08/03/20 09:39 MPV Cancelled 08/03/20 09:39 Immature Gran % (Auto) 0.4 % (0.0-0.4) 08/03/20 09:39 Immature Gran % (Auto) Cancelled 08/03/20 09:39 Neut % (Auto) 75.4 % (45-73) H 08/03/20 09:39 Neut % (Auto) Cancelled 08/03/20 09:39 Lymph % (Auto) 15.6 % (20-40) L 08/03/20 09:39 Lymph % (Auto) Cancelled 08/03/20 09:39 [place] % (Auto) 6.3 % (2-11) 08/03/20 09:39 [place] % (Auto) Cancelled 08/03/20 09:39 Eos % (Auto) 1.8 % (0-4) 08/03/20 09:39 Eos % (Auto) Cancelled 08/03/20 09:39 Baso % (Auto) 0.5 % (0-2) 08/03/20 09:39 Baso % (Auto) Cancelled 08/03/20 09:39 Lymph # (Auto) 0.9 X10*3/uL (1.2-4.9) L 08/03/20 09:39 Lymph # (Auto) Cancelled 08/03/20 09:39 [place] # (Auto) 0.4 X10*3/uL (0.1-1.2) 08/03/20 09:39 [place] # (Auto) Cancelled 08/03/20 09:39 Eos # (Auto) 0.1 X10*3/uL (0.0-0.4) 08/03/20 09:39 Eos # (Auto) Cancelled 08/03/20 09:39 Baso # (Auto) 0.0 X10*3/uL (0.0-0.2) 08/03/20 09:39 Baso # (Auto) Cancelled 08/03/20 09:39 Abs Immat Gran (auto) 0.02 X10*3/uL (0.00-0.03) 08/03/20 09:39 Abs Immat Gran (auto) Cancelled 08/03/20 09:39 Absolute Neuts (auto) 4.2 X10*3/uL (2.0-8.3) 08/03/20 09:39 Absolute Neuts (auto) Cancelled 08/03/20 09:39 Absolute Nucleated RBC 0.000 X10*3/uL (0.0-0.012) 08/03/20 09:39 Absolute Nucleated RBC Cancelled 08/03/20 09:39 Nucleated RBC % (auto) 0.0 /100WBC (0.0-0.2) 08/03/20 09:39 Nucleated RBC % (auto) Cancelled 08/03/20 09:39 ESR 17 MM/HR (0-15) H 08/03/20 09:39 PT 57.9 SEC (10.8-13.0) H D 08/03/20 09:39 PT Cancelled 08/03/20 09:39 INR 4.8 (0.9-1.1) H 08/03/20 09:39 INR Cancelled 08/03/20 09:39 Sodium 141 mmol/L (135-145) 08/03/20 09:39 Potassium 3.7 mmol/l (3.3-5.1) 08/03/20 09:39 Chloride 109 mmol/L (96-108) H 08/03/20 09:39 Carbon Dioxide 24 mmol/L (22-29) 08/03/20 09:39 Anion Gap 12 (12-20) 08/03/20 09:39 BUN 9 mg/dL (9-16) 08/03/20 09:39 Creatinine 1.24 mg/dL (0.5-1.4) 08/03/20 09:39 Estim Creat Clear Calc 71.2 08/03/20 09:39 Estimated GFR > 60 08/03/20 09:39 Random Glucose 186 mg/dL (60-115) H D 08/03/20 09:39 Lactic Acid 0.6 mmol/L (0.5-2.0) 08/02/20 04:48 Calcium 8.3 mg/dL (8.4-10.2) L D 08/03/20 09:39 Total Bilirubin 0.4 mg/dL (0.0-1.0) 08/03/20 09:39 Direct Bilirubin 0.2 mg/dL (0.0-0.5) 08/02/20 04:48 AST 15 U/L (5-37) 08/03/20 09:39 ALT 11 U/L (0-40) 08/03/20 09:39 Alkaline Phosphatase 60 U/L (39-117) 08/03/20 09:39 C-Reactive Protein 3.93 mg/dL (< or = 0.50) H 08/03/20 09:39 Total Protein 6.3 g/dL (6.5-8.0) L 08/03/20 09:39 Albumin 3.4 g/dL (3.5-5.0) L 08/03/20 09:39 Hepatitis C Ab (EIA) Reactive (Nonreactive) H 08/02/20 04:59 HIV 1&2 Ab/P24 Ag 4thGn Nonreactive (Nonreactive) 08/02/20 04:59 Microbiology Microbiology Results: Microbiology 08/02/20 04:48 Blood - Venous Blood Culture - Preliminary No growth after 24 hours. 08/02/20 04:55 Blood - Venous Blood Culture - Preliminary No growth after 24 hours. Assessment and Plan (1) Cellulitis: Status: Acute (2) Mitral valve replaced: Status: Acute (3) IV drug user: Status: Acute Assessment and Plan: hospital d#2 45yo M with hx IDU, MV replacement from prior IE # cellulitis and abscess - s/p drainage in ED 08/01/20 - continue vanc + pip/will d#2 - hydromorphine IV prn severe pain - ID following # opioid use disorder - methadone, SWAT consultation # HCV - outpatient workup + treatment # mechanical MV - INR supratherapeutic- hold warfarin # VTE ppx - warfarin
--- NOTE | 2020-08-03 14:36 | MHC.CM.PN ---
NURSE CARE MANAGEMENT NOTE ELECTRONIC MEDICAL RECORD REVIEWED ALONG WITH CASE DISCUSSED WITH STAFF NURSE AND HOSPITLIST AND BIOCHEMISTRY TECHNOLOGIST , MET WITH PATIENT AFTER SEVERAl unsuccessful attempts secondary to sleeping. i met patient , he was awake aler orientated good eye contact . he reported to me that he has recently become homeless and is aware of the shelters available to them , he reported he does not have any family or friends that he could stay with , even temporarily after discharge , he is invloved with [facility]. iniated referral to cares team for additional support, patient was admitted for with abscess and on iv abx and started on methadone. discharge plan to be further determined home with resumptionof his methadone clinic continue to follow for any changing dischRGE NEEDS
[2020-08-03] MEDS: HYDROmorphone HCl 0.5 MG/0.5 ML SYRINGE IVPUSH ×2 (16:40→21:02)
[2020-08-04] VITALS: BP 112/62; PULSE 46; RESP 19; TEMP 36.3; O2SAT 96
[2020-08-04] MEDS: 0.9 % Sodium Chloride Flush 3 ML SYRINGE IVFLUSH ×2 (00:07→07:53)
[2020-08-04] MEDS: hydrOXYzine HCL 50 MG TABLET PO ×2 (01:34→09:05)
[2020-08-04] MEDS: HYDROmorphone HCl 0.5 MG/0.5 ML SYRINGE IVPUSH ×2 (01:42→07:53)
--- NOTE | 2020-08-04 02:37 | P.EN_ITS ---
Event Note Date of Service: 08/04/20 Event Note: patient wanted to leave AMA because he feels like he is withdrawi ng. He is very jittery. He feels like his methadone is not at the level that he needs to be. I was able to talk to him, will given Dilaudid 1 time dose, Ativan. And increase of his methadone can be discussed in a.m..
[2020-08-04] MEDS: HYDROmorphone HCl 2 MG/ML VIAL IVPUSH (03:06)
[2020-08-04] MEDS: LORazepam 2 MG/ML VIAL 1 MG IVPUSH (03:06)
[2020-08-04 04:00] VITALS: BP 136/69; PULSE 78; RESP 19; TEMP 36.5; O2SAT 95
--- NOTE | 2020-08-04 05:53 | PC.NURSE ---
Pt is trying to leaving AMA around 3 am. MD is notified. Md will come to speak with patient. Patient agreed.
[2020-08-04] MEDS: Piperacillin Sodium/Tazobactam 3.375 GM in 0.9 % Sodium Chloride 50 ML IV ×2 (06:30→11:17)
[2020-08-04 07:53] VITALS: BP 104/66; PULSE 57; RESP 18
[2020-08-04] MEDS: cloNIDine HCL 0.1 MG TABLET PO (07:53)
[2020-08-04 07:55] VITALS: BP 104/66; PULSE 57; RESP 17; TEMP 36.3; O2SAT 96
[2020-08-04] MEDS: Nicotine 14 MG PATCH.TD24 TRANSDERMA (09:05)
[2020-08-04] MEDS: Enoxaparin Sodium 40 MG/0.4 ML SYRINGE SUBCUT (09:05)
[2020-08-04] MEDS: Omeprazole 20 MG CAPSULE.DR PO (09:05)
--- NOTE | 2020-08-04 11:14 | MHC.CM.PN ---
nurse primary care physician note electronic medical record reviewed along with case discussed on patient care rounds and with staff nurse met with patient he still is unceryIN OF WHERE HE WILL GO AFTER DISCHARGED HE IS NOT INTERESTED IN [place] AND WILL P[ROBALY STAY IN HIS CAR HE WAS SEEN BY A ROUTE SALESMAN AND DRIVER FROM THE CARES TEAM (PATIENT IS ALREADY CONNECTED WITH THE [facility] [place] HE IS CURRENTLY LIVING OUT OF CAR BECAUSE HIS WILL NOT TAKE HIM BACK UNTIL HE IS SOBER, PATIENT STILL HAS CONCERNS ABOUT WHAT HE WILL DO ONCE HE IS DISCHARGED , HE WAS GIVEN OPTIONS SENIOR CARE WHICH HE DOES NOT WANT , CSS AND SOBER LIVING.he was informed about the kids activities coach and how he would be able to assist him once discharged and he is accepting of this , with plans to see one before he leaves DISCHARGE PLAN. PLANS ON LIVING OUT OF HIS CAR (DOES NOT WANT TO GO TO [place]) PCP DR ESTEFANÍA SHANNON AT [facility] CASE MANAGEMENT OFFICE TO CALL FOR APOINTMENT WILL HAVE =INR LABS DRAWN TOMORROW HE GOES TO THE LAB AT [facility] TRANSPRTATION -SELF INFOMRED THE CARE S TEAM WORKER THAT PATIENT WILL BE DISCHARGED TODAY SELF RESUMPTION OF HIS METHADONE CLINIC ON [facility].
[2020-08-04 11:43] VITALS: BP 146/80; PULSE 51; RESP 17; TEMP 36.4; O2SAT 96
[2020-08-04 11:45] VITALS: BP 146/80; PULSE 51; RESP 17; TEMP 36.4; O2SAT 96
--- NOTE | 2020-08-04 12:00 | MHC.CM.PN ---
pcp follow up telephone call for jul dr pearl thomas ,our office was instructed that they are not allowing patient s to come into the office building and fr needed inr labs he wpould need to go to the er or other lab facility. this was infrmed to patient as well as to the hospiylaist
--- NOTE | 2020-08-04 12:59 | PM.DS ---
DS: Providers Provider Date of admission: 08/02/20 06:28 Primary care physician: Rashel Chavez MD Consults: 08/02/20 09:00 Consult to Infectious Diseases Routine Consulting Provider: Belinda Dominguez Reason for consultation: abscess, MARIALUISA, hx IE s/p MVR 08/02/20 09:55 Consult to Infectious Diseases Routine Consulting Provider: Belinda Dominguez Reason for consultation: Abscess in IVDU 08/02/20 13:56 Consult to Care Team Routine Comment: HOMELESS, DETOX RESOURCES,MENTAL HEALTH COUNSELING Reason for consultation: injection heroin abuse, on methadone 08/03/20 14:32 Consult to Care Team Routine Comment: Reason for consultation: HOMELESSNESS, SEEK DRUG DETOX SOURCES,MENTAL HEALTH COUNSELING RESOURCES 08/04/20 08:08 Consult to Psychiatry Routine Consulting Provider: Olive Echevarria Reason for consultation: opioid withdrawal, on methadone DS: Diagnosis Discharge Diagnosis (1) Cellulitis: Status: Acute (2) Abscess: Status: Acute (3) Anticoagulated with warfarin: Status: Acute (4) Supratherapeutic INR: Status: Acute (5) H/O mitral valve replacement with mechanical valve: Status: Acute (6) Opioid use disorder: Status: Acute (7) Heroin abuse: Status: Acute (8) Hepatitis C antibody positive in blood: Status: Acute (9) Tobacco abuse: Status: Acute DS: Medications Discharge Medications Home Medications: Home Medications Medication Instructions Recorded Confirmed methadone [Methadose] 40 mg PO DAILY 08/02/20 08/02/20 omeprazole 20 mg PO DAILY 08/02/20 08/02/20 warfarin 10 mg PO DAILY 08/02/20 08/02/20 DS: Summary Hospital Course Hospital Course: from admission history and physical by hospitalist Twin Lamas, 08/02/20: this is a 45-year-old male with past medical history of IV drug use as well as 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 Patient presented in the hospital earlier in the day, the abscess was drained, patient was supposed to be admitted but he refused admission at that time. He returns this morning stating that he continued not feeling well, nauseous, feeling weak and therefore decided to return to the hospital. When I saw him,the patient is withdrawing from methadone, feeling nauseous, pacing back and forth, otherwise reports that he noticed the abscess about 4 days ago, started small like a pimple and grew in size. He denies having any fever. He injects in that site. He has no abdominal pain, diarrhea constipation, no urinary symptoms and no lower extremity edema. On arrival to the ED hemodynamically stable with no significant abnormal vitals labs are significant for no leukocytosis, PT of 40, INR 3.4, otherwise unremarkable. He was admitted to the medical-surgical floor and treated with IV vancomycin and piperacillin-tazobactam. He was not bacteremic. His infection improved and he was discharged on doxycycline plus amoxcillin-clavulanate to complete another seven days of treatment. INR was supratherapeutic at 4.8 on 08/03/20; he refused INR draw on 08/04/20, the day of discharge. Future orders for INR draws on 08/05/20, 08/07/20, 08/09/20, and 08/11/20 were placed and he was instructed to hold warfarin until his INR is 3.5 or less. He will follow up with his methadone clinic and with his primary care doctor. His antibody for HCV is positive but he states that he has tested negative for active infection; however, given recent injection drug use, he ought to have a viral load checked yearly while there are ongoing risk factors; one was ordered. Time Spent with Patient Time attestation: Total time spent providing and/or coordinating discharge services: 35 Physical Exam Vital Signs: Vital Signs: Last Vital Signs Temp 97.5 F 08/04/20 11:45 Pulse 51 08/04/20 11:45 Resp 17 08/04/20 11:45 BP 146/80 H 08/04/20 11:45 Pulse Ox 96 08/04/20 11:45 Body Mass Index 26.6 gen: NAD lungs: CTAB CV: mechanical S2, systolic murmur at apex abd: soft/NT ext: warm, well-perfused, no edema derm: upper R calf with scabbed over drained abscess with surrounding erythema, no residual fluctuance DS: Data Data Completed and Pending Labs on day of discharge: Laboratory Results - last 48 hr 08/02/20 08/03/20 08/03/20 04:59 09:39 09:39 WBC Cancelled RBC Cancelled Hgb Cancelled Hct Cancelled MCV Cancelled MCH Cancelled MCHC Cancelled RDW Cancelled Plt Count Cancelled MPV Cancelled Immature Gran % (Auto) Cancelled Neut % (Auto) Cancelled Lymph % (Auto) Cancelled [place] % (Auto) Cancelled Eos % (Auto) Cancelled Baso % (Auto) Cancelled Lymph # (Auto) Cancelled [place] # (Auto) Cancelled Eos # (Auto) Cancelled Baso # (Auto) Cancelled Abs Immat Gran (auto) Cancelled Absolute Neuts (auto) Cancelled Absolute Nucleated RBC Cancelled Nucleated RBC % (auto) Cancelled ESR 17 H PT INR Sodium Potassium Chloride Carbon Dioxide Anion Gap BUN Creatinine Estim Creat Clear Calc Estimated GFR Random Glucose Calcium Total Bilirubin AST ALT Alkaline Phosphatase C-Reactive Protein Total Protein Albumin Hepatitis C Ab (EIA) Reactive H HIV 1&2 Ab/P24 Ag 4thGn Nonreactive 08/03/20 08/03/20 08/03/20 09:39 09:39 09:39 WBC 5.5 RBC 4.09 L Hgb 11.5 L Hct 35.2 L MCV 86.1 MCH 28.1 MCHC 32.7 RDW 13.1 Plt Count 235 MPV 10.6 Immature Gran % (Auto) 0.4 Neut % (Auto) 75.4 H Lymph % (Auto) 15.6 L [place] % (Auto) 6.3 Eos % (Auto) 1.8 Baso % (Auto) 0.5 Lymph # (Auto) 0.9 L [place] # (Auto) 0.4 Eos # (Auto) 0.1 Baso # (Auto) 0.0 Abs Immat Gran (auto) 0.02 Absolute Neuts (auto) 4.2 Absolute Nucleated RBC 0.000 Nucleated RBC % (auto) 0.0 ESR PT Cancelled INR Cancelled Sodium 141 Potassium 3.7 Chloride 109 H Carbon Dioxide 24 Anion Gap 12 BUN 9 Creatinine 1.24 Estim Creat Clear Calc 71.2 Estimated GFR > 60 Random Glucose 186 H D Calcium 8.3 L D Total Bilirubin 0.4 AST 15 ALT 11 Alkaline Phosphatase 60 C-Reactive Protein 3.93 H Total Protein 6.3 L Albumin 3.4 L Hepatitis C Ab (EIA) HIV 1&2 Ab/P24 Ag 4thGn 08/03/20 09:39 WBC RBC Hgb Hct MCV MCH MCHC RDW Plt Count MPV Immature Gran % (Auto) Neut % (Auto) Lymph % (Auto) [place] % (Auto) Eos % (Auto) Baso % (Auto) Lymph # (Auto) [place] # (Auto) Eos # (Auto) Baso # (Auto) Abs Immat Gran (auto) Absolute Neuts (auto) Absolute Nucleated RBC Nucleated RBC % (auto) ESR PT 57.9 H D INR 4.8 H Sodium Potassium Chloride Carbon Dioxide Anion Gap BUN Creatinine Estim Creat Clear Calc Estimated GFR Random Glucose Calcium Total Bilirubin AST ALT Alkaline Phosphatase C-Reactive Protein Total Protein Albumin Hepatitis C Ab (EIA) HIV 1&2 Ab/P24 Ag 4thGn Discharge Plan Discharge Anticipated Discharge Date/Time: 08/04/20 12:49 Patient Disposition: Home, Self-Care Referrals: Rashel Chavez MD [Primary Care Provider] - Discharge Medications: New nicotine 14 mg/24 hr Patch 24 Hour 14 mg transdermal DAILY Qty: 30 RF: 0 hydroxyzine HCl 50 mg Tablet 50 mg PO Q8H PRN (Reason: anxiety) Qty: 30 RF: 0 doxycycline hyclate 100 mg Tablet 100 mg PO Q12H Qty: 14 RF: 0 amoxicillin-pot clavulanate 875-125 mg Tablet 875 mg PO Q12H Qty: 14 RF: 0 acetaminophen 325 mg Tablet 650 mg PO Q6H PRN (Reason: Pain, Mild (Pain Scale 1-3)) Qty: 60 RF: 0 Continued omeprazole 20 mg capsule,delayed release(DR/EC) 20 mg PO DAILY RF: 0 methadone [Methadose] 10 mg/mL Concentrate 40 mg PO DAILY RF: 0 Held warfarin 5 mg tablet 10 mg PO DAILY RF: 0 Hold Instructions: Resume on 08/07/20. Hold until INR is 3.5 or less, then resume. Check INR 08/05/20, 08/07/20, 08/09/20, 08/11/20 Discharge Orders: Discharge Order (Routine); Ordered 08/04/20 Ordered By: Loulou Jacobson Diet: advance to usual diet Activity on Discharge: no drug us Patient Instructions: How to Stop Smoking (DC), Cellulitis (DC), Abscess (ED), How to Quit Using Smokeless Tobacco (DC), Narcotic Use Disorder (GEN) Stand Alone Forms: Community Support Other Ambulatory Orders: Prothrombin Time INR (Q2D) Timeframe: 52563836 Facility: [facility] - Location: Laboratory Ordered By: Loulou Jacobson Prothrombin Time INR (Q2D) Timeframe: 20200807 Facility: [facility] - Location: Laboratory Ordered By: Loulou Jacobson Prothrombin Time INR (Q2D) Timeframe: 20200809 Facility: [facility] - Location: Laboratory Ordered By: Loulou Jacobson Prothrombin Time INR (Q2D) Timeframe: 20200811 Facility: [facility] - Location: Laboratory Ordered By: Loulou Jacobson Hepatitis C Viral Load (Routine) Timeframe: 1 Day Facility: [facility] - Location: Laboratory Ordered By: Loulou Jacobson Visit Report Forms: Patient Portal Discharge page Care Plan Goals: resolution of leg infection prevent clot on mitral valve appropriate opioid use disorder treatment Health Concerns: leg infection anticoagulated with warfarin for mechanical mitral valve opioid use disorder Plan of Treatment: take 2 antibiotics (doxycycline 100 mg twice daily PLUS amoxicillin/clavulanate 875/125 mg twice daily) for 7 days follow up with your primary care doctor in 1 week check INR Friday08/05/20, Friday08/07/20, Friday08/09/20, and Friday08/11/20 hold warfarin until INR is 3.5 or less [it was 4.8 on 08/03/20], then resume; dosing to be adjusted by primary care doctor follow up with your methadone clinic
[2020-08-04] MEDS: Amoxicillin/Potassium Clav 875 MG TABLET PO (13:12)
== END 2020-08-04 14:00 | disposition home or self-care (01) | DRG 383 ==
LOC: HO.ED 06:46 → HO.S3 08:25
PROVIDERS: Internal Medicine; Admitting Provider Internal Medicine; Emergency Provider Emergency Medicine; PCP Internal Medicine; Visit Provider Family Medicine
DX: L02.415 Cutaneous abscess of right lower limb (principal); F11.20 Opioid dependence, uncomplicated; L03.115 Cellulitis of right lower limb; F17.210 Nicotine dependence, cigarettes, uncomplicated; B19.20 Unspecified viral hepatitis C without hepatic coma; Z71.6 Tobacco abuse counseling; Z95.2 Presence of prosthetic heart valve; Z79.01 Long term (current) use of anticoagulants; Z79.899 Other long term (current) drug therapy
CPT/HCPCS: 36415; 80048; 80053; 80076; 83605; 85025; 85610; 85652; 86140; 86803; 87040; 87389; 93005; 96361; 96374; 96375; 99284; 99285; J1170; J1200; J1650; J1885; J2060; J2270; J2543; J3370

== ENCOUNTER 2024-10-27 10:21 | Emergency (ER) | payer OTHER, SELFPAY ==
--- NOTE | ~2024-10-27 | XR_ITS ---
EXAMINATION: XR CHEST CLINICAL INFORMATION: cough w/ blood streak sputum COMPARISON: PA chest 07/14/2019 TECHNIQUE: 2 views of the chest were obtained. FINDINGS: The lungs are hypoexpanded with platelike atelectasis in the lingula. The heart size is normal. Pulmonary vascularity is normal. 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 Otherwise no gross bony abnormality. XR/XR chest 2V IMPRESSION: Platelike atelectasis in the lingula. Electronically signed by: Johnny Espinoza MD 10/27/2024 11:43 AM EST
[2024-10-27 11:04] VITALS: BP 138/90; PULSE 61; RESP 20; TEMP 36.2; O2SAT 96; BMI 35.8
--- NOTE | 2024-10-27 11:10 | ED.URI ---
HPI - URI/Sore Throat General Chief Complaint: Upper Respiratory Symptoms Stated Complaint: UC sent for CT Time Seen by Provider: 10/27/24 16:14 Related Data Home Medications ?Medication ?Instructions ?Recorded ?Confirmed methadone 10 mg/mL oral 40 mg PO DAILY 08/02/20 08/02/20 concentrate (Methadose) omeprazole 20 mg capsule,delayed 20 mg PO DAILY 08/02/20 08/02/20 release warfarin 5 mg tablet 10 mg PO DAILY 08/02/20 08/02/20 Previous Rx's ?Medication ?Instructions ?Recorded acetaminophen 325 mg tablet 650 mg (2 x 325 mg) PO Q6H PRN 08/04/20 Pain, Mild (Pain Scale 1-3) #60 tabs amoxicillin 875 mg-potassium 875 mg PO Q12H #14 tabs 08/04/20 clavulanate 125 mg tablet doxycycline hyclate 100 mg tablet 100 mg PO Q12H #14 tabs 08/04/20 hydroxyzine HCl 50 mg tablet 50 mg PO Q8H PRN anxiety #30 tabs 08/04/20 nicotine 14 mg/24 hr daily 14 mg transdermal DAILY #30 ea 08/04/20 transdermal patch albuterol sulfate 90 mcg/actuation 2 puff inhalation Q4-6H PRN 10/27/24 aerosol inhaler shortness of breath or wheezing #8.5 grams azithromycin 250 mg tablet See Rx Instructions PO .COMPLEX #6 10/27/24 tabs benzonatate 200 mg capsule 200 mg PO TID PRN cough 5 days #15 10/27/24 caps Allergies Allergy/AdvReac Type Severity Reaction Status Date / Time No Known Allergies Allergy Verified 10/27/24 11:08 [No Known Allergies*] [facility] Past Medical History Medical History Tobacco abuse Endocarditis IV drug user Surgical History (Updated 08/09/20 @ 00:00 by Sulma Valentin) Mitral valve replaced Heart valve replaced Social History Social History Household Members: None Housing: Other Housing Other:: homeless Do you presently have visiting nurse or other home services: No Alcohol intake: never Comment: anxiety Cigarettes Per Day: 1 Second Hand Smoke Exposure: No Substance Use Type: Heroin Advance Directives: No Advance Directives Information Provided: No Do you have a plan to hurt others: No Plan service: No Current occupational status: employed Physical Exam Vital Signs: Vital Signs: Last Vital Signs Temp 0 F L 10/27/24 19:07 Pulse 65 10/27/24 19:07 Resp 18 10/27/24 19:07 BP 00/00 L 10/27/24 19:07 Pulse Ox 96 10/27/24 15:58 O2 Del Method Room Air 10/27/24 15:58 BMI result Body Mass Index 35.8 Course Course Course Narrative: This is a Rapid Medical Examination (RME) performed by Eleanor Barrientos PA-C in triage. Full HPI, ROS, assessment and treatment plan per primary provider in the Main ED. 49 yo male hx of mitral valve replacement on warfarin, hx IVDU here from for eval of hemoptysis which began today. admits to cough/congestion/myaglias x1 week. 1-2 episodes of bloody sputum today. seen at - was told his INR was 2.3 and that he needed to come to the ED for CT scans. +well appearing Plan: labs, ekg, viral testing, cxr Medications Administered Discontinued Medications Generic Name Dose Route Start Last Admin Trade Name Freq PRN Reason Stop Dose Admin Tranexamic Acid 500 mg 10/27/24 16:37 10/27/24 16:46 Tranexamic Acid 1,000 Mg/10 Ml Vial INHALE 10/27/24 16:38 500 mg ONCE ONE Administration Medical Decision Making Lab Data 10/27/24 17:16 10/27/24 12:03 Labs: Lab Results 10/27/24 10/27/24 10/27/24 Range/Units 11:34 12:03 17:16 WBC 6.6 6.8 (4.8-10.8) X10*3/uL RBC 5.12 4.86 (4.60-5.80) X10*6/uL Hgb 14.3 13.7 L (14.0-18.0) g/dl Hct 44.1 41.7 L (42.0-52.0) % MCV 86.1 85.8 (80.0-98.0) fL MCH 27.9 28.2 (27.0-33.0) pg MCHC 32.4 32.9 (31.0-36.0) g/dl RDW 12.6 12.7 (11.0-16.0) % Plt Count 202 194 (160-400) X10*3/uL MPV 11.0 10.9 (9.4-12.4) fL Immature Gran % (Auto) 0.2 0.4 (0.0-0.4) % Neut % (Auto) 68.9 65.9 (45-73) % Lymph % (Auto) 20.9 20.9 (20-40) % [place] % (Auto) 6.4 8.1 (2-11) % Eos % (Auto) 3.3 4.3 H (0-4) % Baso % (Auto) 0.3 0.4 (0-2) % Lymph # (Auto) 1.4 1.4 (1.2-4.9) X10*3/uL [place] # (Auto) 0.4 0.6 (0.1-1.2) X10*3/uL Eos # (Auto) 0.2 0.3 (0.0-0.4) X10*3/uL Baso # (Auto) 0.0 0.0 (0.0-0.2) X10*3/uL Abs Immat Gran (auto) 0.01 0.03 (0.00-0.03) X10*3/uL Absolute Neuts (auto) 4.5 4.5 (2.0-8.3) x10*3/uL Absolute Nucleated RBC 0.000 0.000 (0.0-0.012) X10*3/uL Nucleated RBC % (auto) 0.0 0.0 (0.0-0.2) /100WBC PT 24.0 H (10.9-12.4) SEC INR 2.1 H (0.9-1.1) Sodium 138 (135-145) mmol/L Potassium 4.4 (3.3-5.1) mmol/L Chloride 106 (96-108) mmol/L Carbon Dioxide 28 (22-29) mmol/L Anion Gap 8 L (12-20) BUN 16 (9-16) mg/dL Creatinine 1.07 (0.5-1.4) mg/dL Estim Creat Clear Calc 93.7 Estimated GFR > 60 Random Glucose 79 (60-115) mg/dL Calcium 8.6 (8.4-10.2) mg/dL Magnesium 2.0 (1.6-2.6) mg/dL Total Bilirubin 0.3 (0.0-1.0) mg/dL AST 30 (5-37) U/L ALT 16 (0-40) U/L Alkaline Phosphatase 64 (39-117) U/L Troponin I High Sens < 2.7 (<3.5-35.0) ng/L Total Protein 7.4 (6.5-8.0) g/dL Albumin 4.0 (3.5-5.0) g/dL Influenza Type A (PCR) NEGATIVE (Negative) Influenza Type B (PCR) NEGATIVE (Negative) RSV RNA Qual (PCR) NEGATIVE (Negative) SARS-CoV-2 RNA (RT-PCR) NEGATIVE (Negative) Discharge Plan Discharge Clinical Impression: Bronchitis, Cough with hemoptysis Patient Disposition: Left Against Medical Advice Instructions: Acute Bronchitis (ED), Hemoptysis (ED) Additional Instructions: Return to the ED immediately for any rectal bleeding, bloody urine, vomiting blood, coughing up blood, chest pain on inspiration, shortness of breath, chest pain, intractable fever, chills, or any other concerning symptoms. Prescriptions: New azithromycin 250 mg tablet See Rx Instructions .ROUTE .COMPLEX Qty: 6 0RF Rx Instructions: For 250 mg dose pack: take 500 mg today (day 1), then 250 mg for 4 days (days 2-5) benzonatate 200 mg capsule 200 mg PO TID PRN (Reason: cough) 5 Days Qty: 15 0RF albuterol sulfate 90 mcg/actuation HFA aerosol inhaler 2 puff inhalation Q4-6H PRN (Reason: shortness of breath or wheezing) Qty: 8.5 0RF No Action warfarin 5 mg tablet 10 mg PO DAILY omeprazole 20 mg capsule,delayed release(DR/EC) 20 mg PO DAILY methadone [Methadose] 10 mg/mL Concentrate 40 mg PO DAILY Rx Instructions: Methadone clinic: [facility] in [place], [place]. nicotine 14 mg/24 hr Patch 24 Hour 14 mg transdermal DAILY Qty: 30 0RF hydroxyzine HCl 50 mg Tablet 50 mg PO Q8H PRN (Reason: anxiety) Qty: 30 0RF doxycycline hyclate 100 mg Tablet 100 mg PO Q12H Qty: 14 0RF amoxicillin-pot clavulanate 875-125 mg Tablet 875 mg PO Q12H Qty: 14 0RF acetaminophen 325 mg Tablet 650 mg PO Q6H PRN (Reason: Pain, Mild (Pain Scale 1-3)) Qty: 60 0RF Stand Alone Forms: Against Medical Advice Interventions: ED Discharge Assessment Last Done: 10/27/24 19:07 Discharge Date/Time: 10/27/24 19:07 Print Language: Nepalese
--- NOTE | 2024-10-27 11:12 | ECG_ITS ---
Test Reason : CHEST PAIN Blood Pressure : */* mmHG Vent. Rate : 59 BPM Atrial Rate : 59 BPM P-R Int : 162 ms QRS Dur : 102 ms QT Int : 436 ms P-R-T Axes : 8 7 69 degrees QTcB Int : 431 ms Sinus bradycardia RSR' or QR pattern in V1 suggests right ventricular conduction delay Nonspecific T wave abnormality Abnormal ECG When compared with ECG of 03-Aug-2020 09:18, QT has shortened Referred By: Janice Barrientos Electronically Signed By: Akhil Brarios
[2024-10-27 12:08] LABS: MANUAL DIFF FLAG NO
[2024-10-27 12:09] LABS: Basophils Percent Auto 0.3 % (0-2); Eosinophils Absolute Auto 0.2 X10*3/uL (0.0-0.4); Eosinophils Percent Auto 3.3 % (0-4); Hematocrit 44.1 % (42.0-52.0); Hemoglobin 14.3 g/dl (14.0-18.0); Imm Gran Abs Auto 0.01 X10*3/uL (0.00-0.03); Imm Gran Pct Auto 0.2 % (0.0-0.4); Lymphocytes Absolute Auto 1.4 X10*3/uL (1.2-4.9); Lymphocytes Percent Auto 20.9 % (20-40); Mean Corpuscular HGB Conc 32.4 g/dl (31.0-36.0); Mean Corpuscular Hemoglobin 27.9 pg (27.0-33.0); Mean Corpuscular Volume 86.1 fL (80.0-98.0); Monocytes Absolute Auto 0.4 X10*3/uL (0.1-1.2); Monocytes Percent Auto 6.4 % (2-11); Neutrophils Absolute Auto 4.5 x10*3/uL (2.0-8.3); Neutrophils Percent Auto 68.9 % (45-73); Platelet Count 202 X10*3/uL (160-400); Red Blood Count 5.12 X10*6/uL (4.60-5.80); Red Cell Distribution Width 12.6 % (11.0-16.0); White Blood Count 6.6 X10*3/uL (4.8-10.8)
[2024-10-27 12:16] LABS: INTERNATIONAL NORM RATIO 2.1 (0.9-1.1)
[2024-10-27 12:31] LABS: Alanine Aminotransferase 16 U/L (0-40); Alkaline Phosphatase 64 U/L (39-117); Anion Gap 8 (12-20); Aspartate Amino Transferase 30 U/L (5-37); Bilirubin Total 0.3 mg/dL (0.0-1.0); Blood Urea Nitrogen 16 mg/dL (9-16); Calcium 8.6 mg/dL (8.4-10.2); Carbon Dioxide 28 mmol/L (22-29); Chloride 106 mmol/L (96-108); Creatinine Clr Calc Pharmacy 93.7; Estimated Glomerular Filt Rate > 60; Glucose Random 79 mg/dL (60-115); Potassium 4.4 mmol/L (3.3-5.1); Sodium 138 mmol/L (135-145); Total Protein 7.4 g/dL (6.5-8.0)
[2024-10-27 12:58] LABS: Influenza A PCR NEGATIVE (Negative); Influenza B PCR NEGATIVE (Negative); Resp Syncy Virus RNA Qual PCR NEGATIVE (Negative); SARS COV2 PCR INHOUSE NEGATIVE (Negative)
[2024-10-27 15:58] VITALS: BP 114/81; PULSE 65; RESP 20; TEMP 36.8; O2SAT 96
--- NOTE | 2024-10-27 16:41 | ED_ITS ---
HPI - General Adult General Chief complaint: Upper Respiratory Symptoms Stated complaint: UC sent for CT Time Seen by Provider: 10/27/24 16:14 Source: patient Mode of arrival: ambulatory Limitations: no limitations History of Present Illness ED Provider: Karlo Schwartz HPI narrative: 49 yold male who is on Coumadin for heart valve presents to ED for URI symptoms of coughing and nasal congestion and body aches for 1 week and this morning he had 1 episode of coughing up blood. Patient was sent for urgent care for evaluation. Patient states no chest pain or shortness of breath. Patient denies coughing any blood since this morning. Related Data Home Medications ?Medication ?Instructions ?Recorded ?Confirmed methadone 10 mg/mL oral 40 mg PO DAILY 08/02/20 08/02/20 concentrate (Methadose) omeprazole 20 mg capsule,delayed 20 mg PO DAILY 08/02/20 08/02/20 release warfarin 5 mg tablet 10 mg PO DAILY 08/02/20 08/02/20 Previous Rx's ?Medication ?Instructions ?Recorded acetaminophen 325 mg tablet 650 mg (2 x 325 mg) PO Q6H PRN 08/04/20 Pain, Mild (Pain Scale 1-3) #60 tabs amoxicillin 875 mg-potassium 875 mg PO Q12H #14 tabs 08/04/20 clavulanate 125 mg tablet doxycycline hyclate 100 mg tablet 100 mg PO Q12H #14 tabs 08/04/20 hydroxyzine HCl 50 mg tablet 50 mg PO Q8H PRN anxiety #30 tabs 08/04/20 nicotine 14 mg/24 hr daily 14 mg transdermal DAILY #30 ea 08/04/20 transdermal patch albuterol sulfate 90 mcg/actuation 2 puff inhalation Q4-6H PRN 10/27/24 aerosol inhaler shortness of breath or wheezing #8.5 grams azithromycin 250 mg tablet See Rx Instructions PO .COMPLEX #6 10/27/24 tabs benzonatate 200 mg capsule 200 mg PO TID PRN cough 5 days #15 10/27/24 caps Allergies Allergy/AdvReac Type Severity Reaction Status Date / Time No Known Allergies Allergy Verified 10/27/24 11:08 [No Known Allergies*] PMFSH Past Medical History Medical History Tobacco abuse Endocarditis IV drug user Surgical History (Updated 08/09/20 @ 00:00 by Background Daemangela) Mitral valve replaced Heart valve replaced Social History Social History Household Members: None Housing: Other Housing Other:: homeless Do you presently have visiting nurse or other home services: No Alcohol intake: never Comment: anxiety Cigarettes Per Day: 1 Second Hand Smoke Exposure: No Substance Use Type: Heroin Advance Directives: No Advance Directives Information Provided: No Do you have a plan to hurt others: No Plan service: No Current occupational status: employed Physical Exam ED Vital Signs: Vital Signs - 24 hr 10/27/24 15:58 10/27/24 16:48 10/27/24 19:07 Temperature 98.2 F 0 F L Pulse Rate 65 65 65 Respiratory Rate 20 18 18 Blood Pressure 114/81 00/00 L Pulse Oximetry 96 Oxygen Delivery Method Room Air BMI result Body Mass Index 35.8 Const General: cooperative, healthy appearing, comfortable, no acute distress, well developed, alert, awake and Physically active Orientation/consciousness: patient oriented x3 HENMT Head: Yes normal to inspection, Yes No palpable skull fracture present, Yes normocephalic and Yes atraumatic Eyes General: appearance normal, both eyes and all related structures Neck Neck: Yes normal visual inspection, Yes full ROM, Yes no lymphadenopathy, Yes no meningeal signs, Yes trachea midline, Yes supple, No anterior neck swelling and No tender Chest Chest palpation & inspection: normal inspection of the chest and normal palpation of entire chest wall Resp Effort & Inspection: normal respiratory effort Auscultation: clear to auscultation bilaterally Cardio Jugular venous distension: no JVD Heart sounds: S1 normal heart sound present and S2 normal heart sound present GI Inspection: Yes normal to inspection Palpation (GI): Soft to palpation, not firm, nontender, no guarding and not rigid General: Yes no CVA tenderness Back/Spine/Pelvis Back: no CVA tenderness and No back tenderness Skin General skin exam: no rashes or lesions noted, elasticity normal and turgor normal Neuro General: patient oriented x3, gait normal, tone normal, moves all extremities, Normal light touch and pain sensation, no meningeal signs, no focal motor deficits, CN's II-XI intact bilaterally and normal sensation to monofilament Extrem General: Yes normal to inspection, Yes full ROM and Yes capillary refill normal Psych Appearance: grossly normal, well kempt and not disheveled Medications Administered Discontinued Medications Generic Name Dose Route Start Last Admin Trade Name Nathaniel PRN Reason Stop Dose Admin Tranexamic Acid 500 mg 10/27/24 16:37 10/27/24 16:46 Tranexamic Acid 1,000 Mg/10 Ml Vial INHALE 10/27/24 16:38 500 mg ONCE ONE Administration Medical Decision Making Medical Decision Making [facility] Narrative: 49-year-old patient presents for 2 episodes of coughing up blood this morning. Patient denies any coughing up blood ever since. Patient states having URI symptoms including coughing 1 week. Patient has been in the waiting since 11:04am and he states he has not had any coughing or coughing up blood. Case was discussed with Dr. Chi and he recommends given patient TXA aerosolized and observed versus admission. Patient does not want to be admitted so patient agreeable to be observed at least a 19:00. Patient does not want to be admitted. 5:54pm: Patient would like to be discharged from the ED. patient does not want repeat troponin. Patient explained usually with this presentation although he appears stable would like to admit patient for observation but patient refused. Patient explained worrisome signs and informed to return to the ED immediately. Patient states if he has any worrisome symptoms she will return to the ED immediately. Patient eplained risks of internal bleeding, [place], and . [email or web address] still signed out AMA. Patient will be discharged with azithromycin, albuterol, and benzonatne Differential Diagnosis Differential Diagnoses: The differential diagnosis associated with the presentation includes (GI bleed, internal bleeding,) Admission/Observation Consideration of admission/observation: Escalation of care including admission/observation considered Lab Data [facility] Lab Attestation statement: I reviewed the patient's lab results. 10/27/24 17:16 10/27/24 12:03 Labs: Lab Results 10/27/24 10/27/24 10/27/24 Range/Units 11:34 12:03 17:16 WBC 6.6 6.8 (4.8-10.8) X10*3/uL RBC 5.12 4.86 (4.60-5.80) X10*6/uL Hgb 14.3 13.7 L (14.0-18.0) g/dl Hct 44.1 41.7 L (42.0-52.0) % MCV 86.1 85.8 (80.0-98.0) fL MCH 27.9 28.2 (27.0-33.0) pg MCHC 32.4 32.9 (31.0-36.0) g/dl RDW 12.6 12.7 (11.0-16.0) % Plt Count 202 194 (160-400) X10*3/uL MPV 11.0 10.9 (9.4-12.4) fL Immature Gran % (Auto) 0.2 0.4 (0.0-0.4) % Neut % (Auto) 68.9 65.9 (45-73) % Lymph % (Auto) 20.9 20.9 (20-40) % Real % (Auto) 6.4 8.1 (2-11) % Eos % (Auto) 3.3 4.3 H (0-4) % Baso % (Auto) 0.3 0.4 (0-2) % Lymph # (Auto) 1.4 1.4 (1.2-4.9) X10*3/uL Real # (Auto) 0.4 0.6 (0.1-1.2) X10*3/uL Eos # (Auto) 0.2 0.3 (0.0-0.4) X10*3/uL Baso # (Auto) 0.0 0.0 (0.0-0.2) X10*3/uL Abs Immat Gran (auto) 0.01 0.03 (0.00-0.03) X10*3/uL Absolute Neuts (auto) 4.5 4.5 (2.0-8.3) x10*3/uL Absolute Nucleated RBC 0.000 0.000 (0.0-0.012) X10*3/uL Nucleated RBC % (auto) 0.0 0.0 (0.0-0.2) /100WBC PT 24.0 H (10.9-12.4) SEC INR 2.1 H (0.9-1.1) Sodium 138 (135-145) mmol/L Potassium 4.4 (3.3-5.1) mmol/L Chloride 106 (96-108) mmol/L Carbon Dioxide 28 (22-29) mmol/L Anion Gap 8 L (12-20) BUN 16 (9-16) mg/dL Creatinine 1.07 (0.5-1.4) mg/dL Estim Creat Clear Calc 93.7 Estimated GFR > 60 Random Glucose 79 (60-115) mg/dL Calcium 8.6 (8.4-10.2) mg/dL Magnesium 2.0 (1.6-2.6) mg/dL Total Bilirubin 0.3 (0.0-1.0) mg/dL AST 30 (5-37) U/L ALT 16 (0-40) U/L Alkaline Phosphatase 64 (39-117) U/L Troponin I High Sens < 2.7 (<3.5-35.0) ng/L Total Protein 7.4 (6.5-8.0) g/dL Albumin 4.0 (3.5-5.0) g/dL Influenza Type A (PCR) NEGATIVE (Negative) Influenza Type B (PCR) NEGATIVE (Negative) RSV RNA Qual (PCR) NEGATIVE (Negative) SARS-CoV-2 RNA (RT-PCR) NEGATIVE (Negative) Independent Interpretation I performed an independent interpretation of an: EKG (Negative STEMI) Independent Historian Clinical information obtained from an independent historian. History obtained from or confirmed by: Other (Patient) Prescription Management I considered prescription management with: Antibiotic Discharge Plan Discharge Clinical Impression: Bronchitis, Cough with hemoptysis Patient Disposition: Left Against Medical Advice Instructions: Acute Bronchitis (ED), Hemoptysis (ED) Additional Instructions: Return to the ED immediately for any rectal bleeding, bloody urine, vomiting blood, coughing up blood, chest pain on inspiration, shortness of breath, chest pain, intractable fever, chills, or any other concerning symptoms. Prescriptions: New azithromycin 250 mg tablet See Rx Instructions .ROUTE .COMPLEX Qty: 6 0RF Rx Instructions: For 250 mg dose pack: take 500 mg today (day 1), then 250 mg for 4 days (days 2-5) benzonatate 200 mg capsule 200 mg PO TID PRN (Reason: cough) 5 Days Qty: 15 0RF albuterol sulfate 90 mcg/actuation HFA aerosol inhaler 2 puff inhalation Q4-6H PRN (Reason: shortness of breath or wheezing) Qty: 8.5 0RF No Action warfarin 5 mg tablet 10 mg PO DAILY omeprazole 20 mg capsule,delayed release(DR/EC) 20 mg PO DAILY methadone [Methadose] 10 mg/mL Concentrate 40 mg PO DAILY Rx Instructions: Methadone clinic: [facility] at [place], [place]. nicotine 14 mg/24 hr Patch 24 Hour 14 mg transdermal DAILY Qty: 30 0RF hydroxyzine HCl 50 mg Tablet 50 mg PO Q8H PRN (Reason: anxiety) Qty: 30 0RF doxycycline hyclate 100 mg Tablet 100 mg PO Q12H Qty: 14 0RF amoxicillin-pot clavulanate 875-125 mg Tablet 875 mg PO Q12H Qty: 14 0RF acetaminophen 325 mg Tablet 650 mg PO Q6H PRN (Reason: Pain, Mild (Pain Scale 1-3)) Qty: 60 0RF Stand Alone Forms: Against Medical Advice Interventions: ED Discharge Assessment Last Done: 10/27/24 19:07 Discharge Date/Time: 10/27/24 19:07 Print Language: Grenadian
[2024-10-27] MEDS: Tranexamic Acid 1,000 MG/10 ML VIAL 500 MG INHALE (16:46)
[2024-10-27 16:48] VITALS: PULSE 65; RESP 18; O2SAT 96
[2024-10-27 17:21] LABS: MANUAL DIFF FLAG NO
[2024-10-27 17:23] LABS: Basophils Percent Auto 0.4 % (0-2); Eosinophils Absolute Auto 0.3 X10*3/uL (0.0-0.4); Eosinophils Percent Auto 4.3 % (0-4); Hematocrit 41.7 % (42.0-52.0); Hemoglobin 13.7 g/dl (14.0-18.0); Imm Gran Abs Auto 0.03 X10*3/uL (0.00-0.03); Imm Gran Pct Auto 0.4 % (0.0-0.4); Lymphocytes Absolute Auto 1.4 X10*3/uL (1.2-4.9); Lymphocytes Percent Auto 20.9 % (20-40); Mean Corpuscular HGB Conc 32.9 g/dl (31.0-36.0); Mean Corpuscular Hemoglobin 28.2 pg (27.0-33.0); Mean Corpuscular Volume 85.8 fL (80.0-98.0); Mean Platelet Volume 10.9 fL (9.4-12.4); Monocytes Absolute Auto 0.6 X10*3/uL (0.1-1.2); Monocytes Percent Auto 8.1 % (2-11); Neutrophils Absolute Auto 4.5 x10*3/uL (2.0-8.3); Neutrophils Percent Auto 65.9 % (45-73); Platelet Count 194 X10*3/uL (160-400); Red Blood Count 4.86 X10*6/uL (4.60-5.80); Red Cell Distribution Width 12.7 % (11.0-16.0); White Blood Count 6.8 X10*3/uL (4.8-10.8)
[2024-10-27 17:43] LABS: Troponin-I High Sensitivity < 2.7 ng/L (<3.5-35.0)
--- NOTE | 2024-10-27 18:14 | PC.NURSE ---
pt verbalizes risks of leaving AMA, pt wishes to still wishes to leave at this time AMA form signed buy this nurse and LAMIN Trivedi.
[2024-10-27 19:07] VITALS: BP 00/00; PULSE 65; RESP 18; TEMP -17.7; TEMP 0
== END 2024-10-27 19:07 | disposition left against medical advice (07) ==
LOC: HO.ED 18:15
PROVIDERS: Physician Assistant; Physician Assistant Medical; Emergency Provider Emergency Medicine; PCP Internal Medicine
DX: J40 Bronchitis, not specified as acute or chronic (principal); R04.2 Hemoptysis; R05.9 Cough, unspecified; R09.81 Nasal congestion; R52 Pain, unspecified; Z79.899 Other long term (current) drug therapy; Z53.29 Procedure and treatment not carried out because of patient's decision for other reasons
CPT/HCPCS: 0241U; 36415; 71046; 80053; 83735; 84484; 85025; 85610; 93005; 94640; 99284

== ENCOUNTER → 2024-10-27 11:07 | Outpatient (BNV) | payer OTHER, SELFPAY | PROVIDERS: PCP Internal Medicine; Visit Provider Radiology Diagnostic Radiology | DX: R04.2 Hemoptysis (principal) | CPT/HCPCS: 71046 ==

== ENCOUNTER → 2024-10-27 11:12 | Outpatient (BNV) | payer OTHER, SELFPAY | PROVIDERS: PCP Internal Medicine; Visit Provider Internal Medicine Cardiovascular Disease | DX: R00.1 Bradycardia, unspecified (principal) | CPT/HCPCS: 93010 ==